=== PATIENT | female | born 1935 | race African-American/Black ===

== ENCOUNTER 2022-03-26 19:50 | Observation (INO) | payer MEDICARE ==
[2022-03-26] MEDS ORDERED: SODIUM CHLORIDE 0.9% 1000 ML 1,000 ML IV ONE (20:18)
[2022-03-26] MEDS ORDERED: PANTOPRAZOLE 80 MG in SODIUM CHLORIDE 0.9% 100 ML IV ONE (20:18)
[2022-03-26] MEDS ORDERED: PANTOPRAZOLE 40 MG INJ IV ONE (20:18)
[2022-03-26 21:12] LABS: Hematocrit 42.1 % (30.3-42.9); INR 1.03 (0.87-1.13); Mean Corpuscular HGB Conc 33 % (30-34); Mean Corpuscular Volume 95 fl (79-97); Red Blood Count 4.41 M/mm3 (3.65-5.03); Red Cell Distribution Width 14.2 % (13.2-15.2)
[2022-03-26 21:25] LABS: BUN/Creatinine Ratio TNR; Blood Urea Nitrogen TNR mg/dL (7-17)
[2022-03-26 21:26] LABS: Alanine Aminotransferase TNR units/L (7-56); Albumin TNR g/dL (3.9-5); Calcium TNR mg/dL (8.4-10.2)
[2022-03-26 21:27] LABS: Hemolysis Index 1003
[2022-03-26 21:30] LABS: Platelet Count 126 K/mm3 (140-440)
[2022-03-26 23:06] LABS: Alanine Aminotransferase 12 units/L (7-56); BUN/Creatinine Ratio 26; Blood Urea Nitrogen 23 mg/dL (7-17); Calcium 9.7 mg/dL (8.4-10.2); Hemolysis Index 393
--- NOTE | 2022-03-26 23:20 | Emergency Department Report ---
ED GI Bleed HPI - General Chief complaint: GI Bleed Stated complaint: RECTAL BLEEDING Time Seen by Provider: 03/26/22 20:11 Source: EMS Mode of arrival: Stretcher Limitations: No Limitations - History of Present Illness Initial comments: 86 with CHF , afib , dementia presented today with rectal bleeding this am per son - unsure if that is when it started as pt has dementia, son noticed this am , EMS reported some Low BP , MD complaint: gross hematochezia -: Gradual, hour(s) Severity scale (0 -10): 0 Consistency: intermittent Associated Symptoms: denies: denies other symptoms, abdominal pain, nausea, vomiting, epistaxis, headaches, loss of appetite, malaise - Related Data Previous Rx's Medication Instructions Recorded Last Taken Type ALBUTEROL NEB's [Proventil 0.083% 2.5 mg IH Q4HRT PRN #100 nebu 02/14/19 Unknown Rx NEBS] Amiodarone [Cordarone 200 MG TAB] 200 mg PO DAILY #20 tablet 02/14/19 Unknown Rx Apixaban [Eliquis] 2.5 mg PO BID #60 tablet 02/14/19 Unknown Rx AtorvaSTATin [Lipitor] 20 mg PO QHS #30 tablet 02/14/19 Unknown Rx Furosemide [Lasix TAB] 20 mg PO TuFr #30 tablet 02/14/19 Unknown Rx Prednisone [predniSONE 10 mg 10 mg PO .TAPER #1 tab.ds.pk 02/14/19 Unknown Rx (6-Day Pack, 21 Tabs)] carvediloL [Coreg] 3.125 mg PO BID #60 tablet 02/14/19 Unknown Rx lisinopriL [Zestril TAB] 20 mg PO QDAY #30 tablet 02/14/19 Unknown Rx Allergies Allergy/AdvReac Type Severity Reaction Status Date / Time No Known Allergies Allergy Verified 02/01/16 19:17 ED Review of Systems ROS: Stated complaint: RECTAL BLEEDING Other details as noted in HPI Constitutional: denies: chills, fever Eyes: denies: eye pain, eye discharge, vision change ENT: denies: ear pain, throat pain Respiratory: denies: cough, shortness of breath, wheezing Cardiovascular: denies: chest pain, palpitations Endocrine: no symptoms reported Gastrointestinal: denies: abdominal pain, nausea, diarrhea Genitourinary: denies: urgency, dysuria, discharge Musculoskeletal: denies: back pain, joint swelling, arthralgia Skin: denies: rash, lesions Neurological: denies: headache, weakness, paresthesias Psychiatric: denies: anxiety, depression Hematological/Lymphatic: denies: easy bleeding, easy bruising ED Past Medical Hx - Past Medical History Hx Hypertension: No Hx CVA: Yes Hx Heart Attack/AMI: No Hx Congestive Heart Failure: No Hx Deep Vein Thrombosis: No Hx of Cancer: Yes (breast) Hx Arthritis: Yes Hx Dementia: Yes Additional medical history: HIGH CHOLESTEROL. Afib - Surgical History Past Surgical History?: Yes Hx Coronary Stent: Yes Hx Pacemaker: Yes Hx Internal Defibrillator: No Hx Breast Surgery: Yes (left breast) Additional Surgical History: RT MASTECTOMY - Social History Smoking Status: Unknown if ever smoked - Medications Home Medications: Home Medications Medication Instructions Recorded Confirmed Last Taken Type ALBUTEROL NEB's [Proventil 0.083% 2.5 mg IH Q4HRT PRN #100 nebu 02/14/19 Unknown Rx NEBS] Amiodarone [Cordarone 200 MG TAB] 200 mg PO DAILY #20 tablet 02/14/19 Unknown Rx Apixaban [Eliquis] 2.5 mg PO BID #60 tablet 02/14/19 Unknown Rx AtorvaSTATin [Lipitor] 20 mg PO QHS #30 tablet 02/14/19 Unknown Rx Furosemide [Lasix TAB] 20 mg PO TuFr #30 tablet 02/14/19 Unknown Rx Prednisone [predniSONE 10 mg 10 mg PO .TAPER #1 tab.ds.pk 02/14/19 Unknown Rx (6-Day Pack, 21 Tabs)] carvediloL [Coreg] 3.125 mg PO BID #60 tablet 02/14/19 Unknown Rx lisinopriL [Zestril TAB] 20 mg PO QDAY #30 tablet 02/14/19 Unknown Rx ED Physical Exam - General Limitations: No Limitations General appearance: cachectic - Head Head exam: Present: atraumatic, normocephalic - Eye Eye exam: Present: normal appearance - ENT ENT exam: Present: mucous membranes moist - Neck Neck exam: Present: normal inspection - Respiratory Respiratory exam: Present: normal lung sounds bilaterally. Absent: respiratory distress - Cardiovascular Cardiovascular Exam: Present: regular rate, tachycardia. Absent: systolic murmur, diastolic murmur, rubs, gallop - GI/Abdominal GI/Abdominal exam: Present: soft, normal bowel sounds - Rectal Rectal exam: Present: heme (+) stool - Extremities Exam Extremities exam: Present: normal inspection - Back Exam Back exam: Present: normal inspection - Neurological Exam Neurological exam: Present: alert, oriented X3 - Psychiatric Psychiatric exam: Present: normal affect, normal mood - Skin Skin exam: Present: warm, dry, intact, normal color. Absent: rash ED Course Vital Signs 03/26/22 03/26/22 19:54 20:20 Temperature 99.1 F 97.6 F Pulse Rate 107 H 95 H Respiratory 16 18 Rate Blood Pressure 78/44 Blood Pressure 103/63 [Left] O2 Sat by Pulse 97 96 Oximetry ED Medical Decision Making - Lab Data Result diagrams: 03/26/22 20:18 03/26/22 20:18 - EKG Data -: EKG Interpreted by Me EKG shows normal: sinus rhythm Rate: normal - Radiology Data Radiology results: report reviewed, image reviewed - Medical Decision Making H.H stable fluids given BP imrpoved, PPI started will admit for obs and GI consult Critical care attestation.: If time is entered above; I have spent that time in minutes in the direct care of this critically ill patient, excluding procedure time. ED Disposition Clinical Impression: Hematochezia, Bleeding per rectum Disposition: ADMITTED INPATIENT Is pt being admited?: Yes Does the pt Need Aspirin: No Condition: Fair
--- NOTE | 2022-03-26 23:37 | Cat Scan Report ---
CT ABDOMEN AND PELVIS WITH CONTRAST INDICATION / CLINICAL INFORMATION: Question possible Diverticular bleed, / G.I. Bleed. TECHNIQUE: Axial CT images were obtained through the abdomen and pelvis after 100 cc Omnipaque [address] scans at this location are performed using CT dose reduction for ALARA by means of automated exposure control. COMPARISON: CT of the abdomen and pelvis 02/08/2019 FINDINGS: LOWER CHEST: Small airways within the left lower lobe demonstrate bronchial wall thickening and some evidence of mucous plugging. Mild bilateral lower lobe dependent atelectasis is present. Pacemaker wi res are in expected location. LIVER: No focal lesion. No acute findings. GALLBLADDER: No significant abnormality. BILE DUCTS: No significant abnormality. SPLEEN: No significant abnormality. PANCREAS: No significant abnormality. ADRENALS: No significant abnormality. KIDNEYS/URETERS: Posterior cortical cyst mid right kidney measuring up to 1.2 cm. Small angiomyolipom a lower pole left kidney measuring a centimeter. STOMACH / DUODENUM / SMALL BOWEL: The stomach, duodenum, and small bowel demonstrate no significant a bnormality. No specific abnormality of the mesentery demonstrated. COLON: Diverticulosis without acute inflammation. Moderate collection of stool present within the rec sis vault. Minimal perirectal fat stranding. APPENDIX: No significant abnormality. PERITONEUM: No free air or free fluid are present within the abdomen or pelvis. LYMPH NODES: No significant adenopathy. AORTA / ARTERIES: Moderate atherosclerotic calcification without acute abnormality. IVC / VEINS: No significant abnormality. URINARY BLADDER: High attenuation dependently within the bladder may reflect debris. Focal wall thick ening not excluded. No significant contrast is present within the collecting systems. REPRODUCTIVE ORGANS: Thin-walled simple appearing right ovarian cyst measuring 2.9 cm. Uterus and ova wayne otherwise demonstrate no significant abnormality. ADDITIONAL ABDOMINAL/PELVIC FINDINGS: Mild skin thickening in the region of the anus not excluded. SKELETAL SYSTEM: Diffuse osteopenia. Moderately advanced multilevel facet arthropathy of the lumbar s pine with levorotoscoliosis of the thoracolumbar spine apex apparently at T12-L1. IMPRESSION: 1. Moderate stool within the rectal vault with minimal wall thickening and perirectal fat stranding. Early Stercoral colitis could be considered. 2. Nonspecific skin thickening in the region of the anus. Correlation with physical exam recommended. Stable appearance of simple cyst right ovary. 3. Diverticulosis without obvious diverticulitis. Signer Name: Dylon Jeffers II, MD Signed: 03/26/2022 11:33 PM Workstation Name: [id number]
[2022-03-27 00:03] LABS: Calcium 9.7 mg/dL (8.4-10.2)
--- NOTE | 2022-03-27 01:20 | History and Physical Report ---
History of Present Illness Date of examination: 03/27/22 Date of admission: 03/27/22 Chief complaint: Rectal bleeding History of present illness: 86 years old female with history of CVA, breast cancer, arthritis, dementia, hypercholesterol, A. fib on Eliquis was brought to the emergency room because of rectal bleeding since this morning as per son. Family is unsure unsure if that is when it started as pt has dementia, son noticed this am , EMS reported some Low BP . Patient has gross hematochezia In the emergency room patient WBC is 18.0, hemoglobin 14.0 [address] scan of the abdomen showed moderate stool within the rectal vault with minimal wall thickening and perirectal fat stranding. Early stercoral colitis could be considered. so we are going to admit the patient to the medical telemetry. We will hold Eliquis, put the patient on Protonix drip and Zosyn and consult GI for evaluation Past History Past Medical History: arthritis (Dementia, high cholesterol, A. fib), stroke, other (Breast cancer) Past Surgical History: Other (History of coronary stent, pacemaker history of breast surgery right mastectomy) Social history: no significant social history Family history: no significant family history Medications and Allergies Allergies Allergy/AdvReac Type Severity Reaction Status Date / Time No Known Allergies Allergy Verified 02/01/16 19:17 Home Medications Medication Instructions Recorded Confirmed Last Taken Type ALBUTEROL NEB's [Proventil 0.083% 2.5 mg IH Q4HRT PRN #100 nebu 02/14/19 Unknown Rx NEBS] Amiodarone [Cordarone 200 MG TAB] 200 mg PO DAILY #20 tablet 02/14/19 Unknown Rx Apixaban [Eliquis] 2.5 mg PO BID #60 tablet 02/14/19 Unknown Rx AtorvaSTATin [Lipitor] 20 mg PO QHS #30 tablet 02/14/19 Unknown Rx Furosemide [Lasix TAB] 20 mg PO TuFr #30 tablet 02/14/19 Unknown Rx Prednisone [predniSONE 10 mg 10 mg PO .TAPER #1 tab.ds.pk 02/14/19 Unknown Rx (6-Day Pack, 21 Tabs)] carvediloL [Coreg] 3.125 mg PO BID #60 tablet 02/14/19 Unknown Rx lisinopriL [Zestril TAB] 20 mg PO QDAY #30 tablet 02/14/19 Unknown Rx Active Meds: Active Medications Acetaminophen (Acetaminophen 325 Mg Tab) 650 mg PO Q4H PRN PRN Reason: Pain MILD(1-3)/Fever >100.5/GILLIAM Albuterol (Albuterol 2.5 Mg/3 Ml Nebu) 2.5 mg IH Q3HRT PRN PRN Reason: Shortness Of Breath Albuterol/Ipratropium (Ipratropium/Albuterol Sulfate 3 Ml Ampul.Neb) 1 ampul IH Q6HRT [facility] Amiodarone HCl (Amiodarone 200 Mg Tab) 200 mg PO DAILY [facility] Atorvastatin Calcium (Atorvastatin 20 Mg Tab) 20 mg PO QHS [facility] Carvedilol (Carvedilol 6.25 Mg Tab) 3.125 mg PO BID [facility] Hydromorphone HCl (Hydromorphone 1 Mg/1 Ml Inj) 0.5 mg IV Q3H PRN PRN Reason: Pain , Severe (7-10) Pantoprazole Sodium 80 mg/ (Sodium Chloride) 100 mls @ 5 mls/hr IV ONCE ONE Stop: 03/27/22 16:17 Last Admin: 03/26/22 21:40 Dose: 4 mg/hr, 5 mls/hr Dextrose/Sodium Chloride (D5/0.45ns) 1,000 mls @ 100 mls/hr IV DIRECT [facility] Lisinopril (Lisinopril 40 Mg Tab) 20 mg PO QDAY [facility] Morphine Sulfate (Morphine 2 Mg/1 Ml Inj) 2 mg IV Q4H PRN PRN Reason: Pain, Moderate (4-6) Ondansetron HCl (Ondansetron 4 Mg/2 Ml Inj) 4 mg IV Q8H PRN PRN Reason: Nausea And Vomiting Sodium Chloride (Sodium Chloride 0.9% 10 Ml Flush Syringe) 10 ml IV BID [facility] Sodium Chloride (Sodium Chloride 0.9% 10 Ml Flush Syringe) 10 ml IV PRN PRN PRN Reason: LINE FLUSH Review of Systems All systems: negative Constitutional: weakness Gastrointestinal: BRBPR, hematochezia, other (Rectal bleeding) Exam - Constitutional Vitals: Temp Pulse Resp BP Pulse Ox 97.6 F 95 H 18 103/63 98 03/26/22 20:20 03/26/22 20:20 03/26/22 20:20 03/26/22 20:20 03/27/22 01:03 General appearance: Present: no acute distress, well-nourished - EENT Eyes: Present: PERRL ENT: hearing intact, clear oral mucosa - Neck Neck: Present: supple, normal ROM - Respiratory Respiratory effort: normal Respiratory: bilateral: diminished - Cardiovascular Heart Sounds: Present: S1 & S2. Absent: rub, click - Extremities Extremities: pulses symmetrical, No edema Peripheral Pulses: within normal limits - Abdominal General gastrointestinal: Present: soft, non-tender, non-distended, normal bowel sounds Female genitourinary: Present: normal - Integumentary Integumentary: Present: clear, warm, dry - Musculoskeletal Musculoskeletal: gait normal, strength equal bilaterally - Psychiatric Psychiatric: appropriate mood/affect, intact judgment & insight - Neurologic Neurologic: CNII-XII intact, moves all extremities Results - Labs CBC & Chem 7: 03/26/22 20:18 03/26/22 23:28 Labs: Laboratory Last Values WBC 18.0 K/mm3 (4.5-11.0) H 03/26/22 20:18 RBC 4.41 M/mm3 (3.65-5.03) 03/26/22 20:18 Hgb 14.0 gm/dl (10.1-14.3) 03/26/22 20:18 Hct 42.1 % (30.3-42.9) 03/26/22 20:18 MCV 95 fl (79-97) 03/26/22 20:18 MCH 32 pg (28-32) 03/26/22 20:18 MCHC 33 % (30-34) 03/26/22 20:18 RDW 14.2 % (13.2-15.2) 03/26/22 20:18 Plt Count 126 K/mm3 (140-440) L 03/26/22 20:18 Lymph % (Auto) [employer] [place] 03/26/22 20:18 [place] % (Auto) Guard Chief 03/26/22 20:18 Eos % (Auto) Guard Chief 03/26/22 20:18 Baso % (Auto) Guard Chief 03/26/22 20:18 Lymph # (Auto) Guard [place] 03/26/22 20:18 [place] # (Auto) Guard Chief 03/26/22 20:18 Eos # (Auto) Guard Chief 03/26/22 20:18 Baso # (Auto) Guard Chief 03/26/22 20:18 Seg Neutrophils % Guard Chief 03/26/22 20:18 Seg Neutrophils # Guard Chief 03/26/22 20:18 PT 14.6 Sec. (12.2-14.9) 03/26/22 20:18 INR 1.03 (0.87-1.13) 03/26/22 20:18 Sodium 137 mmol/L (137-145) 03/26/22 23:28 Potassium 4.6 mmol/L (3.6-5.0) 03/26/22 23:28 Chloride 103.2 mmol/L (98-107) 03/26/22 23:28 Carbon Dioxide 22 mmol/L (22-30) 03/26/22 23:28 Anion Gap 16 mmol/L 03/26/22 23:28 BUN 22 mg/dL (7-17) H 03/26/22 23:28 Creatinine 0.9 mg/dL (0.6-1.2) 03/26/22 23:28 Estimated GFR 60 ml/min 03/26/22 23:28 BUN/Creatinine Ratio 24 % 03/26/22 23:28 Glucose 145 mg/dL (65-100) H 03/26/22 23:28 Calcium 9.7 mg/dL (8.4-10.2) 03/26/22 23:28 Total Bilirubin 0.90 mg/dL (0.1-1.2) 03/26/22 23:28 AST 15 units/L (5-40) 03/26/22 23:28 ALT 10 units/L (7-56) 03/26/22 23:28 Alkaline Phosphatase 113 units/L (35-129) 03/26/22 23:28 Total Protein 6.4 g/dL (6.3-8.2) 03/26/22 23:28 Albumin 3.0 g/dL (3.9-5) L 03/26/22 23:28 Albumin/Globulin Ratio 0.9 % 03/26/22 23:28 Lipase 28 units/L (13-60) 03/26/22 23:28 - Imaging and Cardiology CT scan - abdomen: report reviewed Assessment and Plan VTE prophylaxis?: Mechanical Plan of care discussed with patient/family: Yes - Patient Problems (1) Rectal bleeding Current Visit: Yes Status: Acute Plan to address problem: Admit the patient to the medical telemetry. NPO. D5 half-normal saline at the rate of 100 cc/h. Protonix drip. Serial H&H. GI, evaluation. Recheck CBC in the morning (2) Colitis Current Visit: Yes Status: Acute Plan to address problem: Zosyn 4.5 g IV every 8 hours. Will consult GI for evaluation (3) Coronary artery disease Current Visit: Yes Status: Acute Plan to address problem: Is stable. We will continue the home medication (4) Atrial fibrillation with RVR Current Visit: No Status: Acute Plan to address problem: Amiodarone 200 mg p.o. twice daily. Coreg 3.125 mg p.o. twice daily (5) CHF (congestive heart failure) Current Visit: No Status: Acute Plan to address problem: Stable. Avoid fluid overload. We will monitor the patient closely (6) DVT prophylaxis Current Visit: Yes Status: Acute Plan to address problem: SCD for DVT prophylaxis. Protonix drip for GI prophylaxis. Patient is a full code
[2022-03-27] MEDS ORDERED: ONDANSETRON 4 MG/2 ML INJ IV PRN (01:30)
[2022-03-27] MEDS ORDERED: ACETAMINOPHEN 325 MG TAB PO PRN (01:30)
[2022-03-27] MEDS ORDERED: HYDROmorphone 1 MG/1 ML INJ IV PRN (01:30)
[2022-03-27] MEDS ORDERED: MORPHINE 2 MG/1 ML INJ IV PRN (01:30)
[2022-03-27] MEDS ORDERED: ALBUTEROL 2.5 MG/3 ML NEBU IH PRN ×2 (02:00→22:16)
[2022-03-27] MEDS ORDERED: D5W/0.45% NACL 1,000 ML IV SCH (02:00)
[2022-03-27] MEDS ORDERED: PIPERACIL/TAZOBACTA 4.5/NS 100 4.5 GM/100 ML VIAL IV SCH (02:00)
[2022-03-27] MEDS: IPRATROPIUM/ALBUTEROL SULFATE 3 ML AMPUL.NEB IH SCH ×4 (06:50→22:11)
[2022-03-27] MEDS ORDERED: LACTATED RINGERS 1,000 ML IV ONE (08:00)
--- NOTE | 2022-03-27 09:13 | Gastroenterology Consultation ---
History of Present Illness - Reason for Consult Consult date: 03/27/22 GI bleed Requesting physician: MYNOR RAMIREZ - History of Present Illness The patient is a 86 yo female originally from the [facility] who was brought to hospital by son after noticing blood per rectum. Patient has a h/o dementia and unable to provide history, son at bedside who provides history for pt. he noticed bleeding per rectum yesterday, she felt light headed and brought pt to ER. no prior episodes of known bleeding. eliquis on home meds but pt's son denies patient being on prescription medications. no episodes of bleeding reported overnight. pt's son reports dark maroon appearing blood noticed yesterday. rectal at bedside showed large amount of dark stools mixed with b lood. HD stable and initial hct normal. unknown prior endoscopy/colonoscopy. Past History Past Medical History: arthritis (Dementia, high cholesterol, A. fib), stroke, other (Breast cancer) Past Surgical History: Other (History of coronary stent, pacemaker history of breast surgery right mastectomy) Social history: no significant social history Family history: no significant family history Medications and Allergies Allergies Allergy/AdvReac Type Severity Reaction Status Date / Time No Known Allergies Allergy Verified 02/01/16 19:17 Home Medications Medication Instructions Recorded Confirmed Last Taken Type ALBUTEROL NEB's [Proventil 0.083% 2.5 mg IH Q4HRT PRN #100 nebu 02/14/19 Unknow n Rx NEBS] Amiodarone [Cordarone 200 MG TAB] 200 mg PO DAILY #20 tablet 02/14/19 Unknown Rx Apixaban [Eliquis] 2.5 mg PO BID #60 tablet 02/14/19 Unknown Rx AtorvaSTATin [Lipitor] 20 mg PO QHS #30 tablet 02/14/19 Unknown Rx Furosemide [Lasix TAB] 20 mg PO TuFr #30 tablet 02/14/19 Unknown Rx Prednisone [predniSONE 10 mg 10 mg PO .TAPER #1 tab.ds.pk 02/14/19 Unknown Rx (6-Day Pack, 21 Tabs)] carvediloL [Coreg] 3.125 mg PO BID #60 tablet 02/14/19 Unknown Rx lisinopriL [Zestril TAB] 20 mg PO QDAY #30 tablet 02/14/19 Unknown Rx Active Meds: Active Medications Acetaminophen (Acetaminophen 325 Mg Tab) 650 mg PO Q4H PRN PRN Reason: Pain MILD(1-3)/Fever >100.5/GILLIAM Albuterol/Ipratropium (Ipratropium/Albuterol Sulfate 3 Ml Ampul.Neb) 1 ampul IH Q6HRT [facility] Last Admin: 03/27/22 08:36 Dose: 1 ampul Amiodarone HCl (Amiodarone 200 Mg Tab) 200 mg PO DAILY [facility] Atorvastatin Calcium (Atorvastatin 20 Mg Tab) 20 mg PO QHS [facility] Hydromorphone HCl (Hydromorphone 1 Mg/1 Ml Inj) 0.5 mg IV Q3H PRN PRN Reason: Pain , Severe (7-10) Pantoprazole Sodium 80 mg/ (Sodium Chloride) 100 mls @ 5 mls/hr IV ONCE ONE Stop: 03/27/22 16:17 Last Admin: 03/26/22 21:40 Dose: 4 mg/hr, 5 mls/hr Piperacillin Sod/Tazobactam Sod (Zosyn/Ns 2.25 Gm/50ml) 2.25 gm in 50 mls @ 100 mls/hr IV Q8HR [facility]; Protocol Lactated Ringer's (Lactated Ringers) 1,000 mls @ 500 mls/hr IV BOLUS ONE Stop: 03/27/22 09:59 Morphine Sulfate (Morphine 2 Mg/1 Ml Inj) 2 mg IV Q4H PRN PRN Reason: Pain, Moderate (4-6) Ondansetron HCl (Ondansetron 4 Mg/2 Ml Inj) 4 mg IV Q8H PRN PRN Reason: Nausea And Vomiting Sodium Chloride (Sodium Chloride 0.9% 10 Ml Flush Syringe) 10 ml IV BID [facility] Sodium Chloride (Sodium Chloride 0.9% 10 Ml Flush Syringe) 10 ml IV PRN PRN PRN Reason: LINE FLUSH Reviewed/updated patient's home and current medications Review of Systems - Review of Systems ROS unobtainable: due to mental status Exam - Constitutional Vital Signs: Temp Pulse Resp BP Pulse Ox 98.6 F 72 16 105/47 97 03/27/22 08:02 03/27/22 08:02 03/27/22 08:02 03/27/22 08:02 03/27/22 08:02 General appearance: no acute distress, other (non-verbal) - Neck Neck: supple - Respiratory Respiratory effort: normal Respiratory: bilateral: CTA - Cardiovascular Rhythm: regular Heart Sounds: Present: S1 & S2 - Gastrointestinal General gastrointestinal: Present: soft, non-tender, non-distended Rectal Exam: stool bloody - Neurologic Neurological: other (non-verbal) - Labs CBC & Chem 7: 03/26/22 20:18 03/26/22 23:28 Lab Results: Laboratory Results - last 24 hr 03/26/22 03/26/22 03/26/22 20:18 20:18 20:18 WBC 18.0 H RBC 4.41 Hgb 14.0 Hct 42.1 MCV 95 MCH 32 MCHC 33 RDW 14.2 Plt Count 126 L Lymph % (Auto) Director [employer] [place] % (Auto) Director [employer] Eos % (Auto) [employer] Baso % (Auto) Director [employer] Lymph # (Auto) Director [employer] [place] # (Auto) Director [employer] Eos # (Auto) Director [employer] Baso # (Auto) Director [employer] Seg Neutrophils % Director [employer] Seg Neutrophils # Director [employer] PT 14.6 INR 1.03 Sodium TNR Potassium TNR Chloride TNR Carbon Dioxide TNR Anion Gap TNR BUN TNR Creatinine TNR Estimated GFR TNR BUN/Creatinine Ratio TNR Glucose TNR Calcium TNR Total Bilirubin TNR AST TNR ALT TNR Alkaline Phosphatase TNR Total Protein TNR Albumin TNR Albumin/Globulin Ratio TNR Lipase TNR 03/26/22 03/26/22 22:19 23:28 WBC RBC Hgb Hct MCV MCH MCHC RDW Plt Count Lymph % (Auto) [place] % (Auto) Eos % (Auto) Baso % (Auto) Lymph # (Auto) [place] # (Auto) Eos # (Auto) Baso # (Auto) Seg Neutrophils % Seg Neutrophils # PT INR Sodium TNR 137 Potassium TNR 4.6 Chloride TNR 103.2 Carbon Dioxide 21 L 22 Anion Gap TNR 16 BUN 23 H 22 H Creatinine 0.9 0.9 Estimated GFR 60 60 BUN/Creatinine Ratio 26 24 Glucose 156 H 145 H Calcium 9.7 9.7 Total Bilirubin 0.90 0.90 AST 36 15 ALT 12 10 Alkaline Phosphatase 108 113 Total Protein 6.8 6.4 Albumin 3.0 L 3.0 L Albumin/Globulin Ratio 0.8 0.9 Lipase 32 28 Assessment and Plan 1. GI bleed/hematochezia - reported dark maroon blood yesterday; rectal with dark stools mixed with blood appearance suggestive of lower gi source, although upper source also possible. cont PPI, repeat H/H and manage conservatively from gi stand point if vitals stable and no significant drop in h/h. given advanced dementia, would reserve colonoscopy for urgent indication as would be difficult to prep (would need NG tube placement for golytely). may need to consider EGD based on clinical course. will plan conservative management for time being.
[2022-03-27] MEDS: AMIODARONE 200 MG TAB PO SCH (09:14)
[2022-03-27] MEDS ORDERED: carvediloL 6.25 MG TAB PO SCH (10:00)
[2022-03-27] MEDS ORDERED: LISINOPRIL 40 MG TAB PO SCH (10:00)
[2022-03-27] MEDS ORDERED: carvediloL 3.125 MG TAB PO SCH (10:00)
--- NOTE | 2022-03-27 10:49 | Electrocardiograph Report ---
[facility] Test Date: 2022-03-26 Test Time: 22:44:15 Pat Name: NAM MORALES Department: Room: A457 1 Gender: F [employer]: SANIYA : 1935 Requested By: MYNOR RAMIREZ Order Number: [id number] Reading MD: Amadou Wakefield Measurements Intervals [place] Rate: 82 P: 41 MT: 149 QRS: -7 QRSD: 63 T: 9 QT: 397 QTc: 465 Interpretive Statements Sinus rhythm Right atrial enlargement No previous ECG available for comparison Electronically Signed On 03-27-2022 10:49:02 EDT by Amadou Wakefield
[2022-03-27] MEDS ORDERED: PANTOPRAZOLE 80 MG in SODIUM CHLORIDE 0.9% 100 ML IV SCH (12:00)
--- NOTE | 2022-03-27 13:35 | Event Note ---
Date: 03/27/22 Patient was evaluated this morning, and she was found to be hemodynamically stable. #Hematochezia #Colitis #Leukocytosis WBC 18 Hemoglobin 14; however, patient having large bloody stools at the bedside Continue pantoprazole drip and clear liquid diet Gastroenterology consulted; appreciate recs. Patient will be conservatively managed given her dementia and advanced age. Bleeding is likely secondary to being on anticoagulation in the setting of colitis Continuing Zosyn 4.5 g every 8 hours Continue to trend hemoglobin daily #Hypotension #Atrial fibrillation with RVR Administering additional liter of normal saline in the setting of hypotension Holding home Eliquis 2.5 mg twice daily in the setting of hematochezia/lower GI bleed Holding amiodarone 200 mg daily and lisinopril 20 mg and Coreg 3.125 mg twice daily in the setting of hypotension Can restart medications prior to discharge if patient's condition allows #Congestive heart failurestable Closely monitoring fluid administration to avoid fluid overload #Chronic CADstable #History of CVA #Hyperlipidemia Continue home atorvastatin 20 mg daily #Baseline dementia Continue to orient the patient, open blinds during the daytime, close blinds at night, turn off TV at approximately 10 PM, etc. Attempted to call patient's son but line was busy. We will continue to reach out. #Coordination of CARE time: 30 minutes. Total visit time equals 30 or more minutes with greater than 50% spent [id number] on coordination of care and counseling. #Advanced care planning -Disease education conducted, care plan discussed, diagnoses discussed, prognosis discussed, and patient acknowledges understanding with care plan -Time: +30 min
[2022-03-27] MEDS ORDERED: PIPERACIL-TAZO 2.25 GM/50 ML 2.25 GM/50 ML BAG IV SCH (14:00)
[2022-03-27 14:45] LABS: Hematocrit 33.5 % (30.3-42.9)
[2022-03-27] MEDS: PIPERACIL/TAZOBACTA 4.5/NS 100 4.5 GM/100 ML VIAL IV SCH ×2 (15:32→22:06)
[2022-03-27] MEDS ORDERED: IPRATROPIUM/ALBUTEROL SULFATE 3 ML AMPUL.NEB IH ONE (20:00)
[2022-03-28 05:25] LABS: Basophils # (Auto) 0.1 K/mm3 (0.0-0.1); Basophils % (Auto) 1.1 % (0.0-1.8); Eosinophils # (Auto) 0.5 K/mm3 (0.0-0.4); Eosinophils % (Auto) 5.6 % (0.0-4.3); Hematocrit 29.6 % (30.3-42.9); Lymphocytes # (Auto) 1.2 K/mm3 (1.2-5.4); Lymphocytes % (Auto) 13.7 % (13.4-35.0); Mean Corpuscular HGB Conc 34 % (30-34); Mean Corpuscular Volume 96 fl (79-97); Monocytes # (Auto) 0.8 K/mm3 (0.0-0.8); Monocytes % (Auto) 8.7 % (0.0-7.3); Platelet Count 254 K/mm3 (140-440); Red Cell Distribution Width 13.5 % (13.2-15.2)
[2022-03-28 05:37] LABS: Calcium 10.3 mg/dL (8.4-10.2)
[2022-03-28] MEDS: PIPERACIL/TAZOBACTA 4.5/NS 100 4.5 GM/100 ML VIAL IV SCH ×3 (05:57→21:00)
[2022-03-28] MEDS ORDERED: LACTATED RINGERS 1,000 ML IV ONE (08:30)
[2022-03-28] MEDS: PANTOPRAZOLE 40 MG INJ IV SCH ×2 (10:25→20:59)
[2022-03-28] MEDS: AMIODARONE 200 MG TAB PO SCH (10:25)
--- NOTE | 2022-03-28 12:17 | Progress Note ---
Assessment and Plan Assessment and plan: #Hematochezia #Colitis #Leukocytosisresolved #Acute blood loss anemia Hemoglobin 14--> 11--> 10 WBC 18--> 8.9 Discontinued pantoprazole drip. Transition to IV pantoprazole 40 mg twice daily. Transition to GI soft diet. Gastroenterology consulted; appreciate recs. Patient will be conservatively managed given her dementia and advanced age. Bleeding is likely secondary to possible diverticular bleed. Patient's son describes the patient not being on Eliquis for approximately 2 years. Continuing Zosyn 4.5 g every 8 hours; can discontinue Zosyn after total of 48 hours. Continue to trend hemoglobin daily #Hypotensionresolved #Hypertension #Atrial fibrillation with RVRresolved Administering additional liter of normal saline in the setting of hypotension Holding home Eliquis 2.5 mg twice daily in the setting of hematochezia/lower GI bleed Restarting amiodarone 200 mg daily and lisinopril 10 mg daily. Continue to hold on home Coreg 3.125 mg twice daily. Continue to monitor #Congestive heart failurestable Closely monitoring fluid administration to avoid fluid overload #Chronic CADstable #History of CVA #Hyperlipidemia Discontinuing home atorvastatin given patient's advanced age. [id number] (including gender). Patient will be discharging home with aspirin 81 mg daily. #Baseline dementia Continue to orient the patient, open blinds during the daytime, close blinds at night, turn off TV at approximately 10 PM, etc. Attempted to call patient's son but line was busy. We will continue to reach out. #Severe protein caloric malnutrition Albumin 3.0 and BMI 18.9 Nutrition consulted; appreciate recs. Continue Ensure supplementation. #Advanced care planning -Disease education conducted, care plan discussed, diagnoses discussed, prognosis discussed, and patient acknowledges understanding with care plan -Time: +30 min Discussion: Spoke with patient's son River Steinberg who explained to the patient has been off of her anticoagulation (Eliquis 2.5 mg twice daily) for approximately 2 years. The patient had not been feeling well prior to presentation, and she was complaining of constipation. The patient became lightheaded and unresponsive in addition to having a large bloody bowel movement at home. This had prompted the call to EMS for hospital transport. Patient son understands that she will not be discharged on Eliquis. But given her history of stroke and chronic CAD, the patient will be discharged on aspirin 81 mg daily. Disposition Plan: Continue medical management Total Time Spent with Patient (Minutes): 45 minutes History Interval history: Continue medical management. Hospitalist Physical - Constitutional Vitals: Temp Pulse Resp BP Pulse Ox 98.6 F 68 18 145/42 96 03/28/22 11:47 03/28/22 11:47 03/28/22 11:47 03/28/22 11:47 03/28/22 11:47 General appearance: Present: no acute distress, cachectic - EENT Eyes: Present: PERRL, EOM intact ENT: hearing intact, clear oral mucosa, edentulous - Neck Neck: Present: supple, normal ROM - Respiratory Respiratory effort: normal Respiratory: bilateral: CTA - Cardiovascular Rhythm: regular Heart Sounds: Present: S1 & S2 - Extremities Extremities: no ischemia, pulses intact, pulses symmetrical, No edema, normal temperature, normal color Peripheral Pulses: within normal limits - Abdominal General gastrointestinal: soft, non-tender, non-distended, normal bowel sounds - Integumentary Integumentary: Present: clear, warm, dry - Psychiatric Psychiatric: appropriate mood/affect, cooperative - Neurologic Neurologic: CNII-XII intact, moves all extremities - Allied Health Allied health notes reviewed: nursing Results - Labs CBC & Chem 7: 03/28/22 04:53 03/28/22 04:53 Labs: Laboratory Last Values WBC 8.9 K/mm3 (4.5-11.0) 03/28/22 04:53 RBC 3.10 M/mm3 (3.65-5.03) L 03/28/22 04:53 Hgb 10.0 gm/dl (10.1-14.3) L 03/28/22 04:53 Hct 29.6 % (30.3-42.9) L 03/28/22 04:53 MCV 96 fl (79-97) 03/28/22 04:53 MCH 32 pg (28-32) 03/28/22 04:53 MCHC 34 % (30-34) 03/28/22 04:53 RDW 13.5 % (13.2-15.2) 03/28/22 04:53 Plt Count 254 K/mm3 (140-440) D 03/28/22 04:53 Lymph % (Auto) 13.7 % (13.4-35.0) 03/28/22 04:53 [place] % (Auto) 8.7 % (0.0-7.3) H 03/28/22 04:53 Eos % (Auto) 5.6 % (0.0-4.3) H 03/28/22 04:53 Baso % (Auto) 1.1 % (0.0-1.8) 03/28/22 04:53 Lymph # (Auto) 1.2 K/mm3 (1.2-5.4) 03/28/22 04:53 B[place] # (Auto) 0.8 K/mm3 (0.0-0.8) 03/28/22 04:53 Eos # (Auto) 0.5 K/mm3 (0.0-0.4) H 03/28/22 04:53 Baso # (Auto) 0.1 K/mm3 (0.0-0.1) 03/28/22 04:53 Seg Neutrophils % 70.9 % (40.0-70.0) H 03/28/22 04:53 Seg Neutrophils # 6.3 K/mm3 (1.8-7.7) 03/28/22 04:53 PT 14.6 Sec. (12.2-14.9) 03/26/22 20:18 INR 1.03 (0.87-1.13) 03/26/22 20:18 Sodium 142 mmol/L (137-145) 03/28/22 04:53 Potassium 4.2 mmol/L (3.6-5.0) 03/28/22 04:53 Chloride 110.5 mmol/L (98-107) H 03/28/22 04:53 Carbon Dioxide 23 mmol/L (22-30) 03/28/22 04:53 Anion Gap 13 mmol/L 03/28/22 04:53 BUN 18 mg/dL (7-17) H 03/28/22 04:53 Creatinine 0.9 mg/dL (0.6-1.2) 03/28/22 04:53 Estimated GFR 60 ml/min 03/28/22 04:53 BUN/Creatinine Ratio 20 % 03/28/22 04:53 Glucose 103 mg/dL (65-100) H 03/28/22 04:53 Calcium 10.3 mg/dL (8.4-10.2) H 03/28/22 04:53 Total Bilirubin 0.90 mg/dL (0.1-1.2) 03/26/22 23:28 AST 15 units/L (5-40) 03/26/22 23:28 ALT 10 units/L (7-56) 03/26/22 23:28 Alkaline Phosphatase 113 units/L (35-129) 03/26/22 23:28 Total Protein 6.4 g/dL (6.3-8.2) 03/26/22 23:28 Albumin 3.0 g/dL (3.9-5) L 03/26/22 23:28 Albumin/Globulin Ratio 0.9 % 03/26/22 23:28 Lipase 28 units/L (13-60) 03/26/22 23:28 Franco/IV: Voiding Method Incontinent Active Medications - Current Medications Current Medications: Generic Name Dose Route Start Last Admin Trade Name Freq PRN Reason Stop Dose Admin Acetaminophen 650 mg 03/27/22 01:30 Acetaminophen 325 Mg Tab PO Q4H PRN Pain MILD(1-3)/Fever >100.5/GILLIAM Albuterol 2.5 mg 03/27/22 22:16 Albuterol 2.5 Mg/3 Ml Nebu IH Q4HRT PRN Shortness Of Breath Amiodarone HCl 200 mg 03/27/22 10:00 03/28/22 10:25 Amiodarone 200 Mg Tab PO 200 mg DAILY ERICKSON Administration Hydromorphone HCl 0.5 mg 03/27/22 01:30 Hydromorphone 1 Mg/1 Ml Inj IV Q3H PRN Pain , Severe (7-10) Piperacillin Sod/Tazobactam Sod 4.5 gm in 100 mls @ 200 mls/hr 03/27/22 14:00 03/28/22 05:57 Zosyn/Ns 4.5gm/100ml IV 200 mls/hr Q8H ERICKSON Administration Protocol Morphine Sulfate 2 mg 03/27/22 01:30 Morphine 2 Mg/1 Ml Inj IV Q4H PRN Pain, Moderate (4-6) Ondansetron HCl 4 mg 03/27/22 01:30 Ondansetron 4 Mg/2 Ml Inj IV Q8H PRN Nausea And Vomiting Pantoprazole Sodium 40 mg 03/28/22 10:00 03/28/22 10:25 Pantoprazole 40 Mg Inj IV 40 mg BID ERICKSON Administration Sodium Chloride 10 ml 03/27/22 10:00 03/28/22 10:25 Sodium Chloride 0.9% 10 Ml Flush Syringe IV 10 ml BID ERICKSON Administration Sodium Chloride 10 ml 03/27/22 02:00 Sodium Chloride 0.9% 10 Ml Flush Syringe IV PRN PRN LINE FLUSH Nutrition/Malnutrition Assess - Dietary Evaluation Nutrition/Malnutrition Findings: Nutrition Notes Start: 03/27/22 12:34 Freq: Status: Active Protocol: Document 03/27/22 12:34 BRIANNE (Rec: 03/27/22 13:04 BRIANNE [id number]) Nutrition Notes Need for 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 .. Current Diet Clear Liquids Diet + D Suppl ( from L 03/27). Labs/Tests 03/27: BUN 22, Glu 145. Pertinent Medications 03/27: Nutritionally unremarkable. 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 Weight Status Appropriate Subjective/Other Information RD consult for risk of malnutrition assessment. Pt has been NPO since admission, just advanced to PO diet, no reports available on Pt's PO intake at the time, will assess at F/U. I will prescribe Dietary Supplementation to compensate for poor or insufficient PO intake of meals. Pt is on Room Air, O2 saturation @ 98%, according to Physical Assessment History notes. Pt shows no signs of concern for risk of malnutrition at the time, according to Physical Assessment History notes. Pt has missing teeth, according to Physical Assessment History notes. Pt presents GI Bleed, according to History & Physical notes. Percent of energy/protein needs met: Prescribed Clear Liquids Diet provides for energy/protein needs (590 Kcal/16 g) during LOS; additionally, Dietary Supplements will compensate for possible poor or insufficient PO intake of meals with 720 Kcal and 24 g of protein. Burn Absent Trauma Absent GI Symptoms Other Food Allergy No Skin Integrity/Comment Assessment WNL. Current % PO Other Minimum of two criteria No #1 Nutrition Diagnosis Altered GI function Etiology Possibly Colitis. As Evidenced by Signs and Symptoms GI Bleed/Hematochezia Is patient on ventilator? No Is Patient Ambulatory and/or Out of Bed No REE-([facility]-confined to bed) 1123.560 Kcal/Kg value to use for calculation 28 Approximate Energy Requirements Using 1400 kcal/Kg Calculation Used for Recommendations Kcal/kg Additional Notes Protein: 1.25-1.5 g/Kg IBW; 69 -83 g/day. Fluids: 1 ml/Kcal, or as per MD. Nutrition Intervention Change Diet Order: Continue Clear Liquids Diet. Advance to Full Liquids Diet when pertinent, as tolerated. Add Supplement/Snack (indicate name/kcal Start 8 fl oz Ensure Clear; /protein ) TID. Provides kCal: 720 Provides Protein (gm) 24 Goal #1 Compensate, through dietary supplementation, for possible poor or insufficient PO intake of meals during LOS. Goal #2 Adjust the dietary intervention to better serve Pt's needs and clinical conditions during LOS. Goal #3 Maintain body weight within +/ -3% of admission body weight during LOS. Follow-Up By: 03/31/22 Additional Comments Continue monitoring food tolerance, %PO intake of meals , and BM.
--- NOTE | 2022-03-28 14:36 | Gastroenterology Progress Note ---
Assessment and Plan Hematochezia/gi bleed - no episodes today, noted drop in H/H from admission, repeat level was stable. HD stable. conservative management from gi stand point given dementia at this time. okay to advance diet as tolerated. Subjective Date of service: 03/28/22 Principal diagnosis: gi bleed Interval history: no bleeding episodes today. more awake today, disoriented, son at bedside. Objective - Constitutional Vitals: Temp Pulse Resp BP Pulse Ox 98.6 F 68 18 145/42 96 03/28/22 11:47 03/28/22 11:47 03/28/22 11:47 03/28/22 11:47 03/28/22 11:47 General appearance: no acute distress (e) - Respiratory Respiratory effort: normal Respiratory: bilateral: CTA - Gastrointestinal General gastrointestinal: Present: soft, non-tender - Labs CBC & Chem 7: 03/28/22 04:53 03/28/22 04:53 Labs: Laboratory Results - last 24 hr 03/27/22 03/28/22 03/28/22 14:26 04:53 04:53 WBC 8.9 RBC 3.10 L Hgb 11.0 D 10.0 L Hct 33.5 D 29.6 L MCV 96 MCH 32 MCHC 34 RDW 13.5 Plt Count 254 D Lymph % (Auto) 13.7 [place] % (Auto) 8.7 H Eos % (Auto) 5.6 H Baso % (Auto) 1.1 Lymph # (Auto) 1.2 Sunflower # (Auto) 0.8 Eos # (Auto) 0.5 H Baso # (Auto) 0.1 Seg Neutrophils % 70.9 H Seg Neutrophils # 6.3 Sodium 142 Potassium 4.2 Chloride 110.5 H Carbon Dioxide 23 Anion Gap 13 BUN 18 H Creatinine 0.9 Estimated GFR 60 BUN/Creatinine Ratio 20 Glucose 103 H Calcium 10.3 H
[2022-03-29 04:05] LABS: Hematocrit 28.1 % (30.3-42.9); Hemoglobin 9.3 gm/dl (10.1-14.3); Mean Corpuscular HGB Conc 33 % (30-34); Mean Corpuscular Volume 96 fl (79-97); Platelet Count 237 K/mm3 (140-440); Red Blood Count 2.93 M/mm3 (3.65-5.03); Red Cell Distribution Width 13.7 % (13.2-15.2)
[2022-03-29 04:07] LABS: Calcium 9.1 mg/dL (8.4-10.2)
[2022-03-29] MEDS: PIPERACIL/TAZOBACTA 4.5/NS 100 4.5 GM/100 ML VIAL IV SCH (06:04)
--- NOTE | 2022-03-29 09:36 | Gastroenterology Progress Note ---
Assessment and Plan 1. GI bleed - H/H appears to be stabilizing, vital signs are stable. unclear etiology/source. signs of possible early stercoral colitis on ct scan which could be potential source. has continued dark stools, and BUN has normalized so upper source can not be definitively ruled out. she is stable however and tolerating po, so would cont conservative management from gi stand point given advanced dementia. if there is worsening H/H and/or continued signs of dark stools/gi bleeding, then would need to rediscuss with son about possible egd +/- colonoscopy. cont PPI until tomorrow and re-assess. Subjective Date of service: 03/29/22 Principal diagnosis: gi bleed Interval history: pt awake, + dementia, dark stools in diaper. tolerating po Objective - Constitutional Vitals: Temp Pulse Resp BP Pulse Ox 98.3 F 67 16 133/43 98 03/29/22 07:57 03/29/22 07:57 03/29/22 03:41 03/29/22 07:57 03/29/22 07:57 General appearance: no acute distress - Respiratory Respiratory effort: normal Respiratory: bilateral: CTA - Cardiovascular Rhythm: regular Heart Sounds: Present: S1 & S2 - Gastrointestinal General gastrointestinal: Present: soft, non-tender - Neurologic Neurological: disoriented - Labs CBC & Chem 7: 03/29/22 03:07 03/29/22 03:07 Labs: Laboratory Results - last 24 hr 03/29/22 03/29/22 03:07 03:07 WBC 7.7 RBC 2.93 L Hgb 9.3 L Hct 28.1 L MCV 96 MCH 32 MCHC 33 RDW 13.7 Plt Count 237 Lymph % (Auto) Netezza Architect [place] % (Auto) Netezza Architect Eos % (Auto) Netezza Architect Baso % (Auto) Netezza Architect Lymph # (Auto) [employer]ezza Architect [place] # (Auto) Netezza Architect Eos # (Auto) Netezza Architect Baso # (Auto) Netezza Architect Seg Neutrophils % Netezza Architect Seg Neutrophils # Netezza Architect Sodium 140 Potassium 3.9 Chloride 108.7 H Carbon Dioxide 19 L Anion Gap 16 BUN 11 Creatinine 0.9 Estimated GFR 60 BUN/Creatinine Ratio 12 Glucose 103 H Calcium 9.1
[2022-03-29] MEDS: ASPIRIN 81 MG TAB CHEW PO SCH (09:46)
[2022-03-29] MEDS: AMIODARONE 200 MG TAB PO SCH (09:47)
[2022-03-29] MEDS: PANTOPRAZOLE 40 MG INJ IV SCH ×2 (09:48→21:17)
[2022-03-29] MEDS: LISINOPRIL 10 MG TAB PO SCH (09:48)
--- NOTE | 2022-03-29 13:10 | Progress Note ---
Assessment and Plan Assessment and plan: #Hematocheziaimproving #Colitis #Leukocytosisresolved #Acute blood loss anemiaresolved Hemoglobin 14--> 11--> 10 WBC 18--> 8.9 Discontinued pantoprazole drip. Transition to regular diet and p.o. pantoprazole 40 mg twice daily. Gastroenterology consulted; appreciate recs. Patient will be conservatively managed given her dementia and advanced age. Bleeding is likely secondary to possible diverticular bleed. Patient's son describes the patient not being on Eliquis for approximately 2 years. Discontinuing Zosyn 4.5 g every 8 hours Continue to trend hemoglobin daily #Hypotensionresolved #Hypertension #Atrial fibrillation with RVRresolved Administering additional liter of normal saline in the setting of hypotension Holding home Eliquis 2.5 mg twice daily in the setting of hematochezia/lower GI bleed Restarting amiodarone 200 mg daily and lisinopril 10 mg daily. Continue to hold on home Coreg 3.125 mg twice daily. Continue to monitor #Congestive heart failurestable Closely monitoring fluid administration to avoid fluid overload #Chronic CADstable #History of CVA #Hyperlipidemia Discontinuing home atorvastatin given patient's advanced age. [id number] (including gender). Patient will be discharging home with aspirin 81 mg daily. #Baseline dementia Continue to orient the patient, open blinds during the daytime, close blinds at night, turn off TV at approximately 10 PM, etc. Attempted to call patient's son but line was busy. We will continue to reach out. #Severe protein caloric malnutrition Albumin 3.0 and BMI 18.9 Nutrition consulted; appreciate recs. Continue Ensure supplementation. #Advanced care planning -Disease education conducted, care plan discussed, diagnoses discussed, prognosis discussed, and patient acknowledges understanding with care plan -Time: +30 min #Discharge planning - Patient is pending complete resolution of hematochezia - Case management has been made aware. - Discharge is tentatively 24-48 hours Discussion: Spoke with patient's son River Steinberg who explained to the patient has been off of her anticoagulation (Eliquis 2.5 mg twice daily) for approximately 2 years. The patient had not been feeling well prior to presentation, and she was complaining of constipation. The patient became lightheaded and unresponsive in addition to having a large bloody bowel movement at home. This had prompted the call to EMS for hospital transport. Patient son understands that she will not be discharged on Eliquis. But given her history of stroke and chronic CAD, the patient will be discharged on aspirin 81 mg daily. Disposition Plan: Continue medical management Total Time Spent with Patient (Minutes): 45 minutes History Interval history: Patient continues to have mild hematochezia this morning. Hospitalist Physical - Constitutional Vitals: Temp Pulse Resp BP Pulse Ox 98.3 F 92 H 16 128/51 98 03/29/22 12:18 03/29/22 12:18 03/29/22 03:41 03/29/22 12:18 03/29/22 12:18 General appearance: Present: no acute distress, cachectic, other (Sleeping comfortably in bed) - EENT Eyes: Present: PERRL, EOM intact ENT: hearing intact, clear oral mucosa, edentulous - Neck Neck: Present: supple, normal ROM - Respiratory Respiratory effort: normal Respiratory: bilateral: CTA - Cardiovascular Rhythm: irregularly irregular Heart Sounds: Present: S1 & S2 - Extremities Extremities: no ischemia, pulses intact, pulses symmetrical, No edema, normal temperature, normal color Peripheral Pulses: within normal limits - Abdominal General gastrointestinal: soft, non-tender, non-distended, normal bowel sounds - Integumentary Integumentary: Present: clear, warm, dry - Psychiatric Psychiatric: appropriate mood/affect, cooperative - Neurologic Neurologic: CNII-XII intact, moves all extremities - Allied Health Allied health notes reviewed: nursing Results - Labs CBC & Chem 7: 03/29/22 03:07 03/29/22 03:07 Labs: Laboratory Last Values WBC 7.7 K/mm3 (4.5-11.0) 03/29/22 03:07 RBC 2.93 M/mm3 (3.65-5.03) L 03/29/22 03:07 Hgb 9.3 gm/dl (10.1-14.3) L 03/29/22 03:07 Hct 28.1 % (30.3-42.9) L 03/29/22 03:07 MCV 96 fl (79-97) 03/29/22 03:07 MCH 32 pg (28-32) 03/29/22 03:07 MCHC 33 % (30-34) 03/29/22 03:07 RDW 13.7 % (13.2-15.2) 03/29/22 03:07 Plt Count 237 K/mm3 (140-440) 03/29/22 03:07 Lymph % (Auto) Back Pad Inspector 03/29/22 03:07 Curry % (Auto) Back Pad Inspector 03/29/22 03:07 Eos % (Auto) Back Pad Inspector 03/29/22 03:07 Baso % (Auto) Back Pad Inspector 03/29/22 03:07 Lymph # (Auto) Back Pad Inspector 03/29/22 03:07 Curry # (Auto) Back Pad Inspector 03/29/22 03:07 Eos # (Auto) Back Pad Inspector 03/29/22 03:07 Baso # (Auto) Back Pad Inspector 03/29/22 03:07 Seg Neutrophils % Back Pad Inspector 03/29/22 03:07 Seg Neutrophils # Back Pad Inspector 03/29/22 03:07 PT 14.6 Sec. (12.2-14.9) 03/26/22 20:18 INR 1.03 (0.87-1.13) 03/26/22 20:18 Sodium 140 mmol/L (137-145) 03/29/22 03:07 Potassium 3.9 mmol/L (3.6-5.0) 03/29/22 03:07 Chloride 108.7 mmol/L (98-107) H 03/29/22 03:07 Carbon Dioxide 19 mmol/L (22-30) L 03/29/22 03:07 Anion Gap 16 mmol/L 03/29/22 03:07 BUN 11 mg/dL (7-17) 03/29/22 03:07 Creatinine 0.9 mg/dL (0.6-1.2) 03/29/22 03:07 Estimated GFR 60 ml/min 03/29/22 03:07 BUN/Creatinine Ratio 12 % 03/29/22 03:07 Glucose 103 mg/dL (65-100) H 03/29/22 03:07 Calcium 9.1 mg/dL (8.4-10.2) 03/29/22 03:07 Total Bilirubin 0.90 mg/dL (0.1-1.2) 03/26/22 23:28 AST 15 units/L (5-40) 03/26/22 23:28 ALT 10 units/L (7-56) 03/26/22 23:28 Alkaline Phosphatase 113 units/L (35-129) 03/26/22 23:28 Total Protein 6.4 g/dL (6.3-8.2) 03/26/22 23:28 Albumin 3.0 g/dL (3.9-5) L 03/26/22 23:28 Albumin/Globulin Ratio 0.9 % 03/26/22 23:28 Lipase 28 units/L (13-60) 03/26/22 23:28 Franco/IV: Voiding Method External Female Catheter Active Medications - Current Medications Current Medications: Generic Name Dose Route Start Last Admin Trade Name Freq PRN Reason Stop Dose Admin Acetaminophen 650 mg 03/27/22 01:30 Acetaminophen 325 Mg Tab PO Q4H PRN Pain MILD(1-3)/Fever >100.5/GILLIAM Albuterol 2.5 mg 03/27/22 22:16 Albuterol 2.5 Mg/3 Ml Nebu IH Q4HRT PRN Shortness Of Breath Amiodarone HCl 200 mg 03/27/22 10:00 03/29/22 09:47 Amiodarone 200 Mg Tab PO 200 mg DAILY ERICKSON Administration Aspirin 81 mg 03/29/22 10:00 03/29/22 09:46 Aspirin 81 Mg Tab Chew PO Not Given QDAY ERICKSON Hydromorphone HCl 0.5 mg 03/27/22 01:30 Hydromorphone 1 Mg/1 Ml Inj IV Q3H PRN Pain , Severe (7-10) Lisinopril 10 mg 03/29/22 10:00 03/29/22 09:48 Lisinopril 10 Mg Tab PO 10 mg QDAY ERICKSON Administration Morphine Sulfate 2 mg 03/27/22 01:30 Morphine 2 Mg/1 Ml Inj IV Q4H PRN Pain, Moderate (4-6) Ondansetron HCl 4 mg 03/27/22 01:30 Ondansetron 4 Mg/2 Ml Inj IV Q8H PRN Nausea And Vomiting Pantoprazole Sodium 40 mg 03/28/22 10:00 03/29/22 09:48 Pantoprazole 40 Mg Inj IV 40 mg BID ERICKSON Administration Sodium Chloride 10 ml 03/27/22 10:00 03/29/22 09:48 Sodium Chloride 0.9% 10 Ml Flush Syringe IV 10 ml BID ERICKSON Administration Sodium Chloride 10 ml 03/27/22 02:00 Sodium Chloride 0.9% 10 Ml Flush Syringe IV PRN PRN LINE FLUSH Nutrition/Malnutrition Assess - Dietary Evaluation Nutrition/Malnutrition Findings: Nutrition Notes Start: 03/27/22 12:34 Freq: Status: Active Protocol: Document 03/27/22 12:34 BIRANNE (Rec: 03/27/22 13:04 BRIANNE [id number]) Nutrition Notes Need for Assessment generated from: platform supervisor,MST Initial or Follow up Assessment Current Diagnosis Coronary Artery Disease,Heart Failure,Stroke,Hyperlipidemia Other Pertinent Diagnosis Hematochezia, Colitis, Atrial Fibrilation w/RVR, Dementia, . .. Current Diet Clear Liquids Diet + D Suppl ( from L 03/27). Labs/Tests 03/27: BUN 22, Glu 145. Pertinent Medications 03/27: Nutritionally unremarkable. Height 5 ft 4 in Weight 50 kg [place] Body Weight (kg) 54.54 BMI 18.9 Intake Prior to Admission Good Weight change and time frame Pt states being unsure if loss body weight [employer]. Weight Status Appropriate Subjective/Other Information RD consult for risk of malnutrition assessment. Pt has been NPO since admission, just advanced to PO diet, no reports available on Pt's PO intake at the time, will assess at F/U. I will prescribe Dietary Supplementation to compensate for poor or insufficient PO intake of meals. Pt is on Room Air, O2 saturation @ 98%, according to Physical Assessment History notes. Pt shows no signs of concern for risk of malnutrition at the time, according to Physical Assessment History notes. Pt has missing teeth, according to Physical Assessment History notes. Pt presents GI Bleed, according to History & Physical notes. Percent of energy/protein needs met: Prescribed Clear Liquids Diet provides for energy/protein needs (590 Kcal/16 g) during LOS; additionally, Dietary Supplements will compensate for possible poor or insufficient PO intake of meals with 720 Kcal and 24 g of protein. Burn Absent Trauma Absent GI Symptoms Other Food Allergy No Skin Integrity/Comment Assessment WNL. Current % PO Other Minimum of two criteria No #1 Nutrition Diagnosis Altered GI function Etiology Possibly Colitis. As Evidenced by Signs and Symptoms GI Bleed/Hematochezia Is patient on ventilator? No Is Patient Ambulatory and/or Out of Bed No REE-([facility]-confined to bed) 1123.560 Kcal/Kg value to use for calculation 28 Approximate Energy Requirements Using 1400 kcal/Kg Calculation Used for Recommendations Kcal/kg Additional Notes Protein: 1.25-1.5 g/Kg IBW; 69 -83 g/day. Fluids: 1 ml/Kcal, or as per MD. Nutrition Intervention Change Diet Order: Continue Clear Liquids Diet. Advance to Full Liquids Diet when pertinent, as tolerated. Add Supplement/Snack (indicate name/kcal Start 8 fl oz Ensure Clear; /protein ) TID. Provides kCal: 720 Provides Protein (gm) 24 Goal #1 Compensate, through dietary supplementation, for possible poor or insufficient PO intake of meals during LOS. Goal #2 Adjust the dietary intervention to better serve Pt's needs and clinical conditions during LOS. Goal #3 Maintain body weight within +/ -3% of admission body weight during LOS. Follow-Up By: 03/31/22 Additional Comments Continue monitoring food tolerance, %PO intake of meals , and BM.
[2022-03-30 05:51] LABS: Hematocrit 29.3 % (30.3-42.9); Hemoglobin 9.6 gm/dl (10.1-14.3)
[2022-03-30 06:04] LABS: BUN/Creatinine Ratio 11; Blood Urea Nitrogen 9 mg/dL (7-17); Calcium 9.4 mg/dL (8.4-10.2); Hemolysis Index 1
[2022-03-30] MEDS ORDERED: PANTOPRAZOLE 40 MG TAB PO SCH ×2 (07:30→13:00)
--- NOTE | 2022-03-30 11:28 | Gastroenterology Progress Note ---
Assessment and Plan Patient symptoms improving hemoglobin is stable Therefore clinical presentation most consistent with stercoral colitis with rectal mass less likely given improving symptoms Recommend medications to prevent recurrent constipation (I started patient on Colace ) from GI perspective this does not appear to be upper GI source and can stop PPI GI will sign off please call us back if patient has any further significant GI bleeding or acute drop in hemoglobin over 1 g - Patient Problems (1) Bleeding per rectum Current Visit: Yes Status: Acute (2) Colitis Current Visit: Yes Status: Acute (3) Hematochezia Current Visit: Yes Status: Acute Subjective Date of service: 03/30/22 Principal diagnosis: gi bleed Interval history: Patient unable to provide a history due to dementia Patient examined with the aid of the nurse, she had dark brown stool in her diaper with a very small amount of bright red blood. The stool was soft. Patient not appearing to complain of abdominal pain at this juncture Objective - Constitutional Vitals: Temp Pulse Resp BP Pulse Ox 98.6 F 72 16 118/59 99 03/30/22 04:01 03/30/22 04:01 03/30/22 04:01 03/30/22 04:01 03/30/22 04:01 General appearance: no acute distress - EENT Eyes: EOM intact - Respiratory Respiratory effort: normal - Gastrointestinal General gastrointestinal: Present: soft Rectal Exam: other (Patient examined with the aid of the nurse, she had dark brown stool in her diaper with a very small amount of bright red blood. The stool was soft.) - Labs CBC & Chem 7: 03/30/22 05:03 03/30/22 05:03 Labs: Laboratory Results - last 24 hr 03/30/22 03/30/22 05:03 05:03 Hgb 9.6 L Hct 29.3 L Sodium 139 Potassium 3.6 Chloride 105.7 Carbon Dioxide 21 L Anion Gap 16 BUN 9 Creatinine 0.8 Estimated GFR > 60 BUN/Creatinine Ratio 11 Glucose 105 H Calcium 9.4
--- NOTE | 2022-03-30 12:20 | Discharge Summary ---
Providers - Providers Date of Admission: 03/27/22 01:12 Date of discharge: 03/30/22 Attending physician: MYNOR RAMIREZ MD 03/27/22 01:12 Consult to Physician [CONS] Routine Comment: Consulting Provider: JOHN KHALIL Physician Instructions: Reason For Exam: Rectal bleeding Primary care physician: TATYANA BA Hospitalization Reason for admission: Hematochezia, hypotension Condition: Fair Pertinent studies: Reviewed. Procedures: None. Hospital course: Patient is a 86-year-old female past medical history of CVA, breast cancer, arthritis, vascular dementia, hypercholesterolemia, atrial fibrillation (not on anticoagulation) who presented to the ED with rectal bleeding and unresponsiveness that the patient's son recognize. In the ED the patient had gross hematochezia, and she was initiated on IV pantoprazole drip and fluid resuscitation. Gastroenterology was consulted for further management due to concerns for possible infection, the patient was started on Zosyn 4.5 g every 8 hours that was eventually discontinued. CT abdomen and pelvis revealed "moderate stool within the rectal vault with minimal wall thickening and perirectal fat stranding. Early stercoral colitis." Given the patient's advanced age and dementia, the decision was made to manage her hematochezia conservatively. The patient's bleeding has since resolved, and the patient has been recommended to initiate Colace to prevent constipation. Patient is medically clear for discharge. Disposition: 01 HOME / SELF CARE / HOMELESS Final Discharge Diagnosis (Prints w/discharge instructions): Hematochezia, stercoral colitis, leukocytosis, acute blood loss anemia, hypotension, hypertension, atrial fibrillation with RVR, congestive heart failure, chronic CAD, history of CVA, hyperlipidemia, baseline dementia, severe protein caloric malnutrition Time spent for discharge: 45 min Core Measure Documentation - Palliative Care Palliative Care/ Comfort Measures: Not Applicable - Core Measures Any of the following diagnoses?: none Exam - Constitutional Vitals: Temp Pulse Resp BP Pulse Ox 98.6 F 72 16 118/59 99 03/30/22 04:01 03/30/22 04:01 03/30/22 04:01 03/30/22 04:01 03/30/22 04:01 General appearance: Present: no acute distress, cachectic - EENT Eyes: Present: PERRL, EOM intact ENT: hearing intact, clear oral mucosa, dentition normal - Neck Neck: Present: supple, normal ROM - Respiratory Respiratory effort: normal Respiratory: bilateral: CTA - Cardiovascular Rhythm: irregularly irregular Heart Sounds: Present: S1 & S2 - Extremities Extremities: no ischemia, pulses intact, pulses symmetrical, No edema, normal temperature, normal color Peripheral Pulses: within normal limits - Abdominal General gastrointestinal: Present: soft, non-tender, non-distended, normal bowel sounds Female genitourinary: Present: deferred - Rectal Rectal Exam: deferred - Integumentary Integumentary: Present: clear, warm, dry - Musculoskeletal Musculoskeletal: generalized weakness - Psychiatric Psychiatric: appropriate mood/affect, intact judgment & insight, memory intact, cooperative - Neurologic Neurologic: CNII-XII intact, moves all extremities - Allied Health Allied health notes reviewed: nursing Plan Activity: advance as tolerated Diet: low salt Additional Instructions: Patient is a 86-year-old female past medical history of CVA, breast cancer, arthritis, vascular dementia, hypercholesterolemia, atrial fibrillation (not on anticoagulation) who presented to the ED with rectal bleeding and unresponsiveness that the patient's son recognize. In the ED the patient had gross hematochezia, and she was initiated on IV pantoprazole drip and fluid resuscitation. Gastroenterology was consulted for further management due to concerns for possible infection, the patient was started on Zosyn 4.5 g every 8 hours that was eventually discontinued. CT abdomen and pelvis revealed "moderate stool within the rectal vault with minimal wall thickening and perirectal fat stranding. Early stercoral colitis." Given the patient's advanced age and dementia, the decision was made to manage her hematochezia conservatively. The patient's bleeding has since resolved, and the patient has been recommended to initiate Colace to prevent constipation. Patient is medically clear for discharge. Care Plan Goals: Patient is medically clear for discharge. Assessment: Patient is a 86-year-old female past medical history of CVA, breast cancer, arthritis, vascular dementia, hypercholesterolemia, atrial fibrillation (not on anticoagulation) who presented to the ED with rectal bleeding and unresponsiveness that the patient's son recognize. In the ED the patient had gross hematochezia, and she was initiated on IV pantoprazole drip and fluid resuscitation. Gastroenterology was consulted for further management due to concerns for possible infection, the patient was started on Zosyn 4.5 g every 8 hours that was eventually discontinued. CT abdomen and pelvis revealed "moderate stool within the rectal vault with minimal wall thickening and perirectal fat stranding. Early stercoral colitis." Given the patient's advanced age and dementia, the decision was made to manage her hematochezia conservatively. The patient's bleeding has since resolved, and the patient has been recommended to initiate Colace to prevent constipation. Patient is medically clear for discharge. Follow up with: TATYANA BA MD [Primary Care Provider] - 7 Days Forms: Accompanied Note Prescriptions: Docusate Sodium [Colace CAP] 100 mg PO BID #60 capsule lisinopriL [Zestril TAB] 10 mg PO QDAY #30 tablet
[2022-03-30] MEDS: LISINOPRIL 10 MG TAB PO SCH (12:36)
[2022-03-30] MEDS: ASPIRIN 81 MG TAB CHEW PO SCH (12:37)
[2022-03-30] MEDS: AMIODARONE 200 MG TAB PO SCH (12:37)
[2022-03-30] MEDS ORDERED: METOPROLOL TARTRATE 50 MG TAB PO SCH (16:00)
[2022-03-30 16:57] VITALS: BP 115/64
[2022-03-30] MEDS ORDERED: DOCUSATE SODIUM 100 MG CAP PO SCH (22:00)
== END 2022-03-30 18:29 | disposition home or self-care (01) ==
LOC: ED 19:50 → 4A 03-27 01:12 → INTOOBSV 03-27 01:12 → 4A 03-27 01:45
PROVIDERS: ADMIT Hospitalist; ATTEND Student in an Organized Health Care Education/Training Program
DX: K62.5 Hemorrhage of anus and rectum (principal); K52.9 Noninfective gastroenteritis and colitis, unspecified; I25.10 Atherosclerotic heart disease of native coronary artery without angina pectoris; I48.20 Chronic atrial fibrillation, unspecified; I11.0 Hypertensive heart disease with heart failure; I50.9 Heart failure, unspecified; M19.90 Unspecified osteoarthritis, unspecified site; F03.90 Unspecified dementia, unspecified severity, without behavioral disturbance, psychotic disturbance, mood disturbance, and anxiety; I95.9 Hypotension, unspecified; E78.5 Hyperlipidemia, unspecified; D50.0 Iron deficiency anemia secondary to blood loss (chronic); D72.829 Elevated white blood cell count, unspecified; E78.00 Pure hypercholesterolemia, unspecified; E43 Unspecified severe protein-calorie malnutrition; Z68.1 Body mass index [BMI] 19.9 or less, adult; Z86.73 Personal history of transient ischemic attack (TIA), and cerebral infarction without residual deficits; Z95.1 Presence of aortocoronary bypass graft; Z95.0 Presence of cardiac pacemaker; Z79.899 Other long term (current) drug therapy; Z98.890 Other specified postprocedural states
CPT/HCPCS: 36415; 74177; 80048; 80053; 83690; 85014; 85018; 85025; 85610; 93005; 94640; 96361; 96365; 96366; 96368; 96375; 96376; 99285; C9113; G0378; J2543; J7030; J7070; J7120; Q9967; 96374

== ENCOUNTER 2022-04-19 22:19 | Inpatient (IN) | payer MEDICARE ==
[2022-04-19] MEDS ORDERED: SODIUM CHLORIDE 0.9% 1000 ML 1,000 ML IV ONE ×2 (23:02)
--- NOTE | 2022-04-19 23:09 | Emergency Department Report ---
HPI - General Chief Complaint: Weakness Time Seen by Provider: 04/19/22 22:57 - HPI HPI: Room 25 Patient is 86-year-old female present with a chief complaint of not eating. The patient's son called hospice because the patient has not been eating lately. The patient is reportedly full code although the son has expressed interest in getting the patient placed in hospice. Patient is currently not in hospice. Patient has a history of dementia does not answer questions. With EMS the patient was found to be tachycardic and they report a heart rate that transiently went up into the 200s. In the ED the patient is tachycardic at 135. ED Past Medical Hx - Past Medical History Previous Medical History?: Yes Hx CVA: Yes Hx Arthritis: Yes Hx Dementia: Yes Additional medical history: HIGH CHOLESTEROL. Afib - Surgical History Past Surgical History?: Yes Hx Coronary Stent: Yes Hx Pacemaker: Yes Hx Breast Surgery: Yes (left breast) Additional Surgical History: RT MASTECTOMY - Family History Family history: no significant - Social History Smoking Status: Unknown if ever smoked Substance Use Type: None - Medications Home Medications: Home Medications Medication Instructions Recorded Confirmed Last Taken Type ALBUTEROL NEB's [Proventil 0.083% 2.5 mg IH Q4HRT PRN #100 nebu 02/14/1904/13 Unknown Rx NEBS] Amiodarone [Cordarone 200 MG TAB] 200 mg PO DAILY #20 tablet 02/14/19 03/27/22 03/23/22 Rx carvediloL [Coreg] 3.125 mg PO BID #60 tablet 02/14/19 03/27/22 03/23/22 Rx Docusate Sodium [Colace CAP] 100 mg PO BID #60 capsule 03/30/22 Unknown Rx lisinopriL [Zestril TAB] 10 mg PO QDAY #30 tablet 03/30/22 Unknown Rx ED Review of Systems ROS: Stated complaint: LACK OF FOOD INTAKE Other details as noted in HPI Comment: Unobtainable due to pts medical conditions (Dementia/patient not answering) Physical Exam - Physical Exam Vital Signs: Vital Signs 04/19/22 22:22 Temperature 98.4 F Pulse Rate 135 H Respiratory 22 Rate Blood Pressure 165/110 O2 Sat by Pulse 95 Oximetry Vital Signs 04/19/22 04/20/22 04/20/22 22:22 00:01 00:16 Temperature 98.4 F Pulse Rate 135 H 158 H 157 H Respiratory 22 20 22 Rate Blood Pressure 165/110 110/64 Blood Pressure [Right] O2 Sat by Pulse 95 91 Oximetry 04/20/22 04/20/22 04/20/22 00:30 00:42 00:44 Temperature Pulse Rate 156 H 150 H Respiratory 17 Rate Blood Pressure 110/64 Blood Pressure 106/64 [Right] O2 Sat by Pulse 93 Oximetry Physical Exam: GENERAL: The patient is well-developed elderly female lying on stretcher with mouth open looking around but not answering questions HEENT: Normocephalic. Atraumatic. Extraocular motions are intact. Patient has dry mucous membranes. NECK: Supple. Trachea midline CHEST/LUNGS: Clear to auscultation. There is no respiratory distress noted. HEART/CARDIOVASCULAR: Regular. There is tachycardia. There is no gallop rub or murmur. ABDOMEN: Abdomen is soft, nontender. Patient has normal bowel sounds. There is no abdominal distention. SKIN: There is no rash. There is no edema. There is no diaphoresis. NEURO: The patient is awake and looks around the room but does not answer questions. Patient not cooperative with neurologic exam MUSCULOSKELETAL: There is no evidence of acute injury. ED Course Vital Signs 04/19/22 22:22 Temperature 98.4 F Pulse Rate 135 H Respiratory 22 Rate Blood Pressure 165/110 O2 Sat by Pulse 95 Oximetry - Reevaluation(s) Reevaluation #1: 04/20/22 01:33 Discussed with patient's son who states he would like to make the patient DNR. ED Medical Decision Making - Lab Data Result diagrams: 04/19/22 23:41 Laboratory Tests 04/19/22 04/19/22 04/19/22 23:41 23:41 23:41 PT 16.4 H INR 1.18 H APTT 28.0 Sodium 163 H* Potassium 5.0 Chloride 124.5 H Carbon Dioxide 24 Anion Gap 20 BUN 57 H Creatinine 1.5 H Estimated GFR 33 BUN/Creatinine Ratio 38 Glucose 159 H Calcium 11.7 H Total Bilirubin 0.70 AST 41 H ALT 20 Alkaline Phosphatase 124 Total Creatine Kinase 313 H CK-MB (CK-2) 2.8 CK-MB (CK-2) Rel Index 0.8 Troponin T 0.283 H* Total Protein 7.5 Albumin 2.4 L Albumin/Globulin Ratio 0.5 CBC pending-Per lab currently having technical issues with analyzer - EKG Data -: EKG Interpreted by Me EKG shows normal: sinus rhythm Rate: tachycardia (120 bpm) - EKG Data When compared to previous EKG there are: previous EKG unavailable Interpretation: nonspecific ST-T wave solo - Radiology Data Radiology results: image reviewed (Chest x-ray) interpreted by me: Chest x-ray-no definite focal infiltrates, no pneumothorax - Differential Diagnosis Dehydration, A. fib with RVR, symptomatic anemia, electrolyte abnormality Critical care attestation.: If time is entered above; I have spent that time in minutes in the direct care of this critically ill patient, excluding procedure time. ED Disposition Clinical Impression: Dehydration, Hypernatremia, Acute kidney injury, Failure to thrive Disposition: ADMITTED INPATIENT Is pt being admited?: Yes Does the pt Need Aspirin: No Condition: Serious Time of Disposition: 01:12 (Care transferred to hospitalist (Dr Jarrett))
[2022-04-20 00:10] LABS: INR 1.18 (0.87-1.13)
[2022-04-20] MEDS ORDERED: SODIUM CHLORIDE 0.9% 1000 ML 1,000 ML IV ONE ×2 (00:20→01:03)
[2022-04-20 00:23] LABS: Creatine Kinase MB 2.8 ng/mL (0.0-4.0)
[2022-04-20 00:24] LABS: Albumin 2.4 g/dL (3.9-5); Calcium 11.7 mg/dL (8.4-10.2)
--- NOTE | 2022-04-20 02:02 | XRay Report ---
CHEST 1 VIEW INDICATION / CLINICAL INFORMATION: Tachycardia. COMPARISON: Chest x-ray 02/09/2019 FINDINGS: SUPPORT DEVICES: Cardiac pacemaker stable. HEART / MEDIASTINUM: No significant abnormality. LUNGS / PLEURA: Mild vascular prominence within the central chest and enlargement of the right hilar vasculature. Lungs are clear. BONES: No significant osseous abnormality. ADDITIONAL FINDINGS: No significant additional findings. IMPRESSION: 1. No active cardiopulmonary disease. Signer Name: Dylon Jeffers II, MD Signed: 04/20/2022 1:58 AM Workstation Name: [id number]
[2022-04-20 02:36] LABS: Basophils % (Auto) 0.2 % (0.0-1.8); Eosinophils % (Auto) 0.2 % (0.0-4.3); Lymphocytes # (Auto) 1.4 K/mm3 (1.2-5.4); Lymphocytes % (Auto) 8.5 % (13.4-35.0); Mean Corpuscular HGB Conc 30 % (30-34); Mean Corpuscular Volume 100 fl (79-97); Monocytes # (Auto) 0.6 K/mm3 (0.0-0.8); Monocytes % (Auto) 3.9 % (0.0-7.3); Platelet Count 411 K/mm3 (140-440); Red Blood Count 3.73 M/mm3 (3.65-5.03); Red Cell Distribution Width 15.5 % (13.2-15.2)
[2022-04-20 02:42] LABS: Hemoglobin 11.1 gm/dl (10.1-14.3)
[2022-04-20 02:43] LABS: Hematocrit 37.4 % (30.3-42.9)
[2022-04-20] MEDS ORDERED: MAGNESIUM HYDROXIDE (MOM) ORAL LIQD UDC PO PRN (03:22)
[2022-04-20] MEDS ORDERED: MORPHINE 4 MG/1 ML INJ IV PRN (03:22)
[2022-04-20] MEDS ORDERED: ACETAMINOPHEN 325 MG TAB PO PRN (03:22)
[2022-04-20] MEDS ORDERED: ONDANSETRON 4 MG/2 ML INJ IV PRN (03:22)
[2022-04-20] MEDS ORDERED: SODIUM CHLORIDE 0.9% 1000 ML 1,000 ML IV SCH (03:30)
[2022-04-20 03:44] LABS: Chol/HDL Ratio 4.22 %
[2022-04-20] MEDS: MORPHINE 2 MG/1 ML INJ IV PRN (04:09)
--- NOTE | 2022-04-20 07:37 | History and Physical Report ---
History of Present Illness Date of examination: 04/20/22 Date of admission: 04/20/22 03:22 Chief complaint: Decreased oral intake History of present illness: Patient is an 86-year-old -[place] female with significant past medical history of coronary artery disease, CVA, hyperlipidemia and dementia brought into the emergency room for evaluation of decreased oral intake. Patient who was by the bedside was able to provide most of the history. Upon arrival in the emergency room patient was found to be tachycardic and hypotensive. She was started on IV fluid with some improvement in her blood pressure. Work-up in the emergency room today, significant findings on the labs were leukocytosis of 16.7, hyponatremia of 163,BUN of 57 and creatinine of 1.5. Troponin of 0.283. Chest x-ray shows no acute findings. Son wishes patient to be a DNR. Past History Past Medical History: atrial fib, arthritis, hyperlipidemia, stroke Past Surgical History: PTCA, Other (Right mastectomy, surgery left breast, pacemaker placement) Social history: no significant social history Family history: no significant family history Medications and Allergies Allergies Allergy/AdvReac Type Severity Reaction Status Date / Time No Known Allergies Allergy Verified 02/01/16 19:17 Home Medications Medication Instructions Recorded Confirmed Last Taken Type ALBUTEROL NEB's [Proventil 0.083% 2.5 mg IH Q4HRT PRN #100 nebu 02/14/19 03/27/22 Unknown Rx NEBS] Amiodarone [Cordarone 200 MG TAB] 200 mg PO DAILY #20 tablet 02/14/19 03/27/22 03/23/22 Rx carvediloL [Coreg] 3.125 mg PO BID #60 tablet 02/14/19 03/27/22 03/23/22 Rx Docusate Sodium [Colace CAP] 100 mg PO BID #60 capsule 03/30/22 Unknown Rx lisinopriL [Zestril TAB] 10 mg PO QDAY #30 tablet 03/30/22 Unknown Rx Active Meds: Active Medications Acetaminophen (Acetaminophen 325 Mg Tab) 650 mg PO Q4H PRN PRN Reason: Pain MILD(1-3)/Fever >100.5/GILLIAM Sodium Chloride (Nacl 0.9% 1000 Ml) 1,000 mls @ 125 mls/hr IV DIRECT ERICKSON Magnesium Hydroxide (Magnesium Hydroxide (Mom) Oral Liqd Udc) 30 ml PO Q4H PRN PRN Reason: Constipation Morphine Sulfate (Morphine 2 Mg/1 Ml Inj) 2 mg IV Q4H PRN PRN Reason: Pain, Moderate (4-6) Last Admin: 04/20/22 04:09 Dose: 2 mg Morphine Sulfate (Morphine 4 Mg/1 Ml Inj) 4 mg IV Q4H PRN PRN Reason: Pain , Severe (7-10) Ondansetron HCl (Ondansetron 4 Mg/2 Ml Inj) 4 mg IV Q8H PRN PRN Reason: Nausea And Vomiting Sodium Chloride (Sodium Chloride 0.9% 10 Ml Flush Syringe) 10 ml IV BID ERICKSON Sodium Chloride (Sodium Chloride 0.9% 10 Ml Flush Syringe) 10 ml IV PRN PRN PRN Reason: LINE FLUSH Review of Systems ROS unobtainable: due to mental status Exam - Constitutional Vitals: Temp Pulse Resp BP Pulse Ox 98.4 F 90 17 124/68 93 04/19/22 22:22 04/20/22 06:53 04/20/22 00:30 04/20/22 06:53 04/20/22 00:44 General appearance: Present: no acute distress, well-nourished, other (Very dry oral mucosa) - EENT Eyes: Present: PERRL, EOM intact. Absent: scleral icterus ENT: hearing intact, clear oral mucosa, dentition normal - Neck Neck: Present: supple, normal ROM - Respiratory Respiratory effort: normal Respiratory: bilateral: CTA - Cardiovascular Rhythm: regular Heart Sounds: Present: S1 & S2. Absent: gallop, systolic murmur, diastolic murmur, rub, click - Extremities Extremities: no ischemia, pulses intact, pulses symmetrical, No edema, normal temperature, Full ROM Peripheral Pulses: within normal limits - Abdominal General gastrointestinal: Present: soft, non-tender, non-distended, normal bowel sounds. Absent: mass - Integumentary Integumentary: Present: clear, warm, dry, decreased turgor. Absent: rash - Musculoskeletal Musculoskeletal: strength equal bilaterally, other (Bilateral heel decubitus in the lower extremities) - Psychiatric Psychiatric: cooperative - Neurologic Neurologic: CNII-XII intact, no focal deficits, moves all extremities - Additional findings Additional findings: Skin: Decubitus ulcers on heels of both feet. HEART Score - HEART Score Troponin: Troponin T 0.283 ng/mL (0.00-0.029) H* 04/19/22 23:41 Results - Labs CBC & Chem 7: 04/19/22 23:41 04/19/22 23:41 Labs: Abnormal lab results 04/19/22 04/19/22 04/19/22 Range/Units 23:41 23:41 23:41 WBC 16.7 H (4.5-11.0) K/mm3 MCV 100 H (79-97) fl RDW 15.5 H (13.2-15.2) % Lymph % (Auto) 8.5 L (13.4-35.0) % Seg Neutrophils % 87.2 H (40.0-70.0) % Seg Neutrophils # 14.6 H (1.8-7.7) K/mm3 PT 16.4 H (12.2-14.9) Sec. INR 1.18 H (0.87-1.13) Sodium 163 H* (137-145) mmol/L Chloride 124.5 H (98-107) mmol/L BUN 57 H (7-17) mg/dL Creatinine 1.5 H (0.6-1.2) mg/dL Glucose 159 H (65-100) mg/dL Calcium 11.7 H (8.4-10.2) mg/dL AST 41 H (5-40) units/L Total Creatine Kinase 313 H (30-135) units/L Troponin T (0.00-0.029) ng/mL Albumin 2.4 L (3.9-5) g/dL Triglycerides (2-149) mg/dL HDL Cholesterol (40-59) mg/dL 04/19/22 Range/Units 23:41 WBC (4.5-11.0) K/mm3 MCV (79-97) fl RDW (13.2-15.2) % Lymph % (Auto) (13.4-35.0) % Seg Neutrophils % (40.0-70.0) % Seg Neutrophils # (1.8-7.7) K/mm3 PT (12.2-14.9) Sec. INR (0.87-1.13) Sodium (137-145) mmol/L Chloride (98-107) mmol/L BUN (7-17) mg/dL Creatinine (0.6-1.2) mg/dL Glucose (65-100) mg/dL Calcium (8.4-10.2) mg/dL AST (5-40) units/L Total Creatine Kinase (30-135) units/L Troponin T 0.283 H* (0.00-0.029) ng/mL Albumin (3.9-5) g/dL Triglycerides 167 H (2-149) mg/dL HDL Cholesterol 36 L (40-59) mg/dL Assessment and Plan Assessment: Failure to thrive Dehydration Hypernatremia PREETI History of dementia History of A. fib History of CVA Elevated troponin-possibly a type II troponin leak Plan: Patient admitted and placed on IV fluid. Dietary consult to be placed for evaluation. We will resume routine home medications once patient is able to tolerate p.o. intake. Will continue to monitor chemistry closely. Consult will be placed to wound care evaluation of decubitus ulcers DVT prophylaxis : Subcutaneous heparin CODE STATUS: Patient is a DNR
[2022-04-20 10:20] LABS: Calcium 11.1 mg/dL (8.4-10.2)
--- NOTE | 2022-04-20 10:36 | Progress Note ---
Assessment and Plan Assessment and plan: Patient is an 86-year-old -[place] female with significant past medical history of coronary artery disease, CVA, hyperlipidemia and dementia brought into the emergency room for evaluation of decreased oral intake. Work-up in the emergency room with significant findings of leukocytosis with WBC 16.7, hyponatremia of 163, BUN of 57 and creatinine of 1.5. Troponin of 0.283. Adult failure to thrive Acute kidney injury secondary to vasomotor nephropathy/dehydration Hypernatremia Leukocytosis History of vascular dementia History of atrial fibrillation History of CVA Elevated troponin Hyperlipidemia 04/20/2022. We will check a urinalysis to rule out UTI given the leukocytosis. We will also check blood cultures. Per the ER record, the patient's son is considering hospice. We will continue with supportive care with IV fluid hydration and changed to half normal saline and follow-up BMP. Check renal ultrasound. Elevated troponin is likely secondary to acute kidney injury. History Interval history: No new issues since admission Hospitalist Physical - Constitutional Vitals: Temp Pulse Resp BP Pulse Ox 98.4 F 90 17 116/69 93 04/19/22 22:22 04/20/22 08:00 04/20/22 00:30 04/20/22 08:00 04/20/22 00:44 General appearance: Present: no acute distress, well-nourished, other (Very dry oral mucosa) - EENT Eyes: Present: PERRL, EOM intact ENT: hearing intact, clear oral mucosa, dentition normal - Neck Neck: Present: supple, normal ROM - Respiratory Respiratory effort: normal Respiratory: bilateral: CTA - Cardiovascular Rhythm: regular Heart Sounds: Present: S1 & S2. Absent: gallop, rub - Extremities Extremities: no ischemia, No edema, Full ROM - Abdominal General gastrointestinal: soft, non-tender, non-distended, normal bowel sounds - Integumentary Integumentary: Present: clear, warm, dry - Neurologic Neurologic: CNII-XII intact, moves all extremities HEART Score - HEART Score Troponin: Troponin T 0.283 ng/mL (0.00-0.029) H* 04/19/22 23:41 Results - Labs CBC & Chem 7: 04/19/22 23:41 04/20/22 09:23 Labs: Laboratory Last Values WBC 16.7 K/mm3 (4.5-11.0) H 04/19/22 23:41 RBC 3.73 M/mm3 (3.65-5.03) 04/19/22 23:41 Hgb 11.1 gm/dl (10.1-14.3) 04/19/22 23:41 Hct 37.4 % (30.3-42.9) 04/19/22 23:41 MCV 100 fl (79-97) H 04/19/22 23:41 MCH 30 pg (28-32) 04/19/22 23:41 MCHC 30 % (30-34) 04/19/22 23:41 RDW 15.5 % (13.2-15.2) H 04/19/22 23:41 Plt Count 411 K/mm3 (140-440) 04/19/22 23:41 Lymph % (Auto) 8.5 % (13.4-35.0) L 04/19/22 23:41 [place] % (Auto) 3.9 % (0.0-7.3) 04/19/22 23:41 Eos % (Auto) 0.2 % (0.0-4.3) 04/19/22 23:41 Baso % (Auto) 0.2 % (0.0-1.8) 04/19/22 23:41 Lymph # (Auto) 1.4 K/mm3 (1.2-5.4) 04/19/22 23:41 [place] # (Auto) 0.6 K/mm3 (0.0-0.8) 04/19/22 23:41 Eos # (Auto) 0.0 K/mm3 (0.0-0.4) 04/19/22 23:41 Baso # (Auto) 0.0 K/mm3 (0.0-0.1) 04/19/22 23:41 Seg Neutrophils % 87.2 % (40.0-70.0) H 04/19/22 23:41 Seg Neutrophils # 14.6 K/mm3 (1.8-7.7) H 04/19/22 23:41 PT 16.4 Sec. (12.2-14.9) H 04/19/22 23:41 INR 1.18 (0.87-1.13) H 04/19/22 23:41 APTT 28.0 Sec. (24.2-36.6) 04/19/22 23:41 Sodium 163 mmol/L (137-145) H* 04/19/22 23:41 Potassium 4.2 mmol/L (3.6-5.0) 04/20/22 09:23 Chloride 128.7 mmol/L (98-107) H 04/20/22 09:23 Carbon Dioxide 22 mmol/L (22-30) 04/20/22 09:23 Anion Gap 17 mmol/L 04/20/22 09:23 BUN 53 mg/dL (7-17) H 04/20/22 09:23 Creatinine 1.1 mg/dL (0.6-1.2) 04/20/22 09:23 Estimated GFR 47 ml/min 04/20/22 09:23 BUN/Creatinine Ratio 48 % 04/20/22 09:23 Glucose 80 mg/dL (65-100) 04/20/22 09:23 Calcium 11.1 mg/dL (8.4-10.2) H 04/20/22 09:23 Total Bilirubin 0.70 mg/dL (0.1-1.2) 04/19/22 23:41 AST 41 units/L (5-40) H 04/19/22 23:41 ALT 20 units/L (7-56) 04/19/22 23:41 Alkaline Phosphatase 124 units/L (35-129) 04/19/22 23:41 Total Creatine Kinase 313 units/L (30-135) H 04/19/22 23:41 CK-MB (CK-2) 2.8 ng/mL (0.0-4.0) 04/19/22 23:41 CK-MB (CK-2) Rel Index 0.8 (0-4) 04/19/22 23:41 Troponin T 0.283 ng/mL (0.00-0.029) H* 04/19/22 23:41 Total Protein 7.5 g/dL (6.3-8.2) 04/19/22 23:41 Albumin 2.4 g/dL (3.9-5) L 04/19/22 23:41 Albumin/Globulin Ratio 0.5 % 04/19/22 23:41 Triglycerides 167 mg/dL (2-149) H 04/19/22 23:41 Cholesterol 152 mg/dL (50-199) 04/19/22 23:41 LDL Cholesterol Direct 75 mg/dL (50-130) 04/19/22 23:41 HDL Cholesterol 36 mg/dL (40-59) L 04/19/22 23:41 Cholesterol/HDL Ratio 4.22 % 04/19/22 23:41 Franco/IV: Voiding Method External Female Catheter Active Medications - Current Medications Current Medications: Generic Name Dose Route Start Last Admin Trade Name Freq PRN Reason Stop Dose Admin Acetaminophen 650 mg 04/20/22 03:22 Acetaminophen 325 Mg Tab PO Q4H PRN Pain MILD(1-3)/Fever >100.5/GILLIAM Sodium Chloride 1,000 mls @ 125 mls/hr 04/20/22 03:30 04/20/22 09:26 Nacl 0.9% 1000 Ml IV 125 mls/hr DIRECT ERICKSON Administration Magnesium Hydroxide 30 ml 04/20/22 03:22 Magnesium Hydroxide (Mom) Oral Liqd Udc PO Q4H PRN Constipation Morphine Sulfate 2 mg 04/20/22 03:22 04/20/22 04:09 Morphine 2 Mg/1 Ml Inj IV 2 mg Q4H PRN Administration Pain, Moderate (4-6) Morphine Sulfate 4 mg 04/20/22 03:22 Morphine 4 Mg/1 Ml Inj IV Q4H PRN Pain , Severe (7-10) Ondansetron HCl 4 mg 04/20/22 03:22 Ondansetron 4 Mg/2 Ml Inj IV Q8H PRN Nausea And Vomiting Sodium Chloride 10 ml 04/20/22 10:00 04/20/22 09:24 Sodium Chloride 0.9% 10 Ml Flush Syringe IV 10 ml BID ERICKSON Administration Sodium Chloride 10 ml 04/20/22 03:22 Sodium Chloride 0.9% 10 Ml Flush Syringe IV PRN PRN LINE FLUSH
[2022-04-20] MEDS: SODIUM CHLORIDE 0.45% 1000 ML 1,000 ML IV SCH (13:05)
--- NOTE | 2022-04-20 16:49 | Consultation ---
History of Present Illness - Reason for Consult Consult date: 04/20/22 acute renal failure, hypernatremia - History of Present Illness Mrs. Steinberg is an 86yo with dementia who presented to the ED decline in mental status and poor po intake. History obtained from patient's son who reports that since discharge from hospital appx 2 weeks ago, patient has been less interactive; she is no longer s peaking. In addition, he reports that patient has stopped eating/drinking. Per records, upon EMS arrival, patient was tachycardic with transient increase in HR to the 200s. In the ED, patient was hypotensive w/ HR 130s. Labs were notable for sodium 165 and SCr mg/dL. Nephrology consultation re quested by the primary team Patient's son reports concern that she has been experiencing left leg pain for 2+ weeks. He states that prior to admission in early March, patient was having falls. He is concerned that patient may have injured her leg during a fall. Past History Past Medical History: atrial fib, arthritis, hyperlipidemia, stroke Past Surgical History: PTCA, Other (Right mastectomy, surgery left breast, pacemaker placement) Social history: no significant social history Family history: no significant family history Medications and Allergies Allergies Allergy/AdvReac Type Severity Reaction Status Date / Time No Known Allergies Allergy Verified 02/01/16 19:17 Home Medications Medication Instructions Recorded Confirmed Last Taken Type ALBUTEROL NEB's [Proventil 0.083% 2.5 mg IH Q4HRT PRN #100 nebu 02/14/19 04/20/22 Unknown Rx NEBS] Amiodarone [Cordarone 200 MG TAB] 200 mg PO DAILY #20 tablet 02/14/19 04/20/22 03/23/22 Rx carvediloL [Coreg] 3.125 mg PO BID #60 tablet 02/14/19 04/20/22 03/23/22 Rx Docusate Sodium [Colace CAP] 100 mg PO BID #60 capsule 03/30/22 04/20/22 Unknown Rx lisinopriL [Zestril TAB] 10 mg PO QDAY #30 tablet 03/30/22 04/20/22 Unknown Rx Active Meds: Active Medications Acetaminophen (Acetaminophen 325 Mg Tab) 650 mg PO Q4H PRN PRN Reason: Pain MILD(1-3)/Fever >100.5/GILLIAM Sodium Chloride (Nacl 0.45% 1000 Ml) 1,000 mls @ 75 mls/hr IV DIRECT [facility] Last Admin: 04/20/22 13:05 Dose: 75 mls/hr Magnesium Hydroxide (Magnesium Hydroxide (Mom) Oral Liqd Udc) 30 ml PO Q4H PRN PRN Reason: Constipation Morphine Sulfate (Morphine 2 Mg/1 Ml Inj) 2 mg IV Q4H PRN PRN Reason: Pain, Moderate (4-6) Last Admin: 04/20/22 04:09 Dose: 2 mg Morphine Sulfate (Morphine 4 Mg/1 Ml Inj) 4 mg IV Q4H PRN PRN Reason: Pain , Severe (7-10) Ondansetron HCl (Ondansetron 4 Mg/2 Ml Inj) 4 mg IV Q8H PRN PRN Reason: Nausea And Vomiting Sodium Chloride (Sodium Chloride 0.9% 10 Ml Flush Syringe) 10 ml IV BID [facility] Last Admin: 04/20/22 09:24 Dose: 10 ml Sodium Chloride (Sodium Chloride 0.9% 10 Ml Flush Syringe) 10 ml IV PRN PRN PRN Reason: LINE FLUSH Review of Systems ROS unobtainable: due to mental status All systems: negative Exam - Vital Signs Vital signs: Vital Signs Temp Pulse Resp BP Pulse Ox 98.4 F 135 H 22 165/110 95 04/19/22 22:22 04/19/22 22:22 04/19/22 22:22 04/19/22 22:22 04/19/22 22:22 - General Appearance General appearance: frail EENT: ATNC Respiratory: Clear to Ascultation Heart: regular, S1S2 Gastrointestinal: Present: normal. Absent: tenderness, distended Integumentary: warm and dry Neurologic: other (somnolent) Musculoskeletal: Present: other (no edema) Results - Lab Results 04/19/22 23:41 04/20/22 09:23 Most recent lab results Calcium 11.1 mg/dL (8.4-10.2) H 04/20/22 09:23 Assessment and Plan Impression: * Acute kidney injury secondary to prerenal azotemia due to dehydration * Hypernatermia secondary to dehydration * Acute encephalopathy * Dementia * LLE pain * Anemia * Hypertension Plan: * Continue IVF for hydration * UA to r/o UTI pending * Obtain left LE plain films per request of patient's son * Hold ACEi * Dose medications for renal function * Avoid potential nephrotoxins
[2022-04-20 17:30] LABS: Bilirubin,Urine NEG (Negative); Blood,Urine SM (Negative); Color,Urine Yellow (Yellow); Mucus,Urine FEW /HPF; Protein,Urine <15 mg/dL mg/dL (Negative); Urobilinogen,Urine < 2.0 mg/dL (<2.0)
--- NOTE | 2022-04-20 18:44 | XRay Report ---
XR femur 2+V LT, XR hip 2-3V LT, XR knee 1-2V LT INDICATION / CLINICAL INFORMATION: left leg pain; hx of fall. COMPARISON: CT from 03/26/2022. FINDINGS: Pelvis/left hip: No acute fracture. No hip dislocation. Mild hip osteoarthritis. Diffuse osteopenia. No focal soft tissue abnormality. Left femur: Diffuse osteopenia. No acute fracture. No focal soft tissue abnormality. Left knee: Moderate-severe tricompartmental osteoarthritis, preferentially involving the lateral knee . There is diffuse osteopenia. No acute fracture or malalignment. Nonspecific moderate knee joint eff usion. IMPRESSION: 1. No acute osseous findings of the left hip, femur, or knee. 2. Degenerative changes, as above. Signer Name: Pepito Hampton MD Signed: 04/20/2022 6:40 PM Workstation Name: [id number]
--- NOTE | 2022-04-20 20:07 | Ultrasound Report ---
. ULTRASOUND RENAL INDICATION / CLINICAL INFORMATION: PREETI. COMPARISON: CT from 03/26/2022 FINDINGS: RIGHT KIDNEY: Size (in cm): 8.2 - Echogenicity: Normal. - Parenchymal Thickness: Parenchymal thinning, measuring 1.1 cm. - Hydronephrosis: None. - Cyst or mass: 1.5 cm cyst at the lower pole. - Stones: None seen. LEFT KIDNEY: Size (in cm): 9 - Echogenicity: Normal. - Parenchymal Thickness: Mild parenchymal thinning, measuring 1.3 cm. - Hydronephrosis: None. - Cyst or mass: No significant abnormality. - Stones: None seen. URINARY BLADDER: Moderate amount of debris layering the bladder. No bladder wall thickening. FREE FLUID: None. ADDITIONAL FINDINGS: 3.1 cm simple appearing cyst in the right adnexa, unchanged from prior CT. IMPRESSION: 1. Mild bilateral renal atrophy. No acute abnormality. No hydronephrosis. 2. Nonspecific moderate debris in the bladder, may reflect proteinaceous or hemorrhagic debris. No si gnificant bladder wall thickening. Recommend correlation for cystitis. 3. Other incidental findings as above. Signer Name: Pepito Hampton MD Signed: 04/20/2022 8:03 PM Workstation Name: [id number]
[2022-04-20] MEDS: cefTRIAXone/NS 1 GM/50 ML 1 GM/50 ML BAG IV SCH (21:22)
[2022-04-21] MEDS: SODIUM CHLORIDE 0.45% 1000 ML 1,000 ML IV SCH (03:04)
[2022-04-21 05:53] LABS: Basophils % (Auto) 0.2 % (0.0-1.8); Eosinophils # (Auto) 0.1 K/mm3 (0.0-0.4); Eosinophils % (Auto) 0.4 % (0.0-4.3); Lymphocytes # (Auto) 1.2 K/mm3 (1.2-5.4); Lymphocytes % (Auto) 7.4 % (13.4-35.0); Mean Corpuscular HGB Conc 30 % (30-34); Mean Corpuscular Volume 97 fl (79-97); Monocytes # (Auto) 0.5 K/mm3 (0.0-0.8); Monocytes % (Auto) 3.2 % (0.0-7.3); Platelet Count 201 K/mm3 (140-440); Red Blood Count 3.39 M/mm3 (3.65-5.03)
[2022-04-21 06:04] LABS: Calcium 10.6 mg/dL (8.4-10.2)
--- NOTE | 2022-04-21 12:18 | Progress Note ---
Assessment and Plan Assessment and plan: Patient is an 86-year-old -[place] female with significant past medical history of coronary artery disease, CVA, hyperlipidemia and dementia brought into the emergency room for evaluation of decreased oral intake. Work-up in the emergency room with significant findings of leukocytosis with WBC 16.7, hyponatremia of 163, BUN of 57 and creatinine of 1.5. Troponin of 0.283. Severe sepsis. Present on admission. Patient meets criteria given the tachycardia, altered mentation and diagnosis of UTI. UTI. Adult failure to thrive Acute kidney injury secondary to vasomotor nephropathy/dehydration Hypernatremia Toxic metabolic encephalopathy Leukocytosis History of vascular dementia History of atrial fibrillation History of CVA Elevated troponin Hyperlipidemia 04/20/2022. We will check a urinalysis to rule out UTI given the leukocytosis. We will also check blood cultures. Per the ER record, the patient's son is considering hospice. We will continue with supportive care with IV fluid hydration and changed to half normal saline and follow-up BMP. Check renal ultrasound. Elevated troponin is likely secondary to acute kidney injury. 04/21/2022. The patient was started on Rocephin for sepsis/UTI. Follow-up blood cultures. Patient still lethargic and confused. Unsure of the patient's baseline mental status. We will continue to treat underlying causes for toxic m etabolic encephalopathy. Hypernatremia is essentially the same. We will change IV fluids to D5W. Nephrology following. Place Dobbhoff tube and began tube feedings. Dietitian consultation if no significant improvement in sodium, we will add free water through the feeding tube. Left leg plain films negative for any acute abnormalities. History Interval history: No new issues since admission Hospitalist Physical - Constitutional Vitals: Temp Pulse Resp BP Pulse Ox 98.4 F 86 18 139/87 97 04/19/22 22:22 04/20/22 20:25 04/20/22 20:25 04/20/22 20:25 04/21/22 12:06 General appearance: Present: no acute distress, well-nourished, other (Very dry oral mucosa) - EENT Eyes: Present: PERRL, EOM intact ENT: hearing intact, clear oral mucosa, dentition normal - Neck Neck: Present: supple, normal ROM - Respiratory Respiratory effort: normal Respiratory: bilateral: CTA - Cardiovascular Rhythm: regular Heart Sounds: Present: S1 & S2. Absent: gallop, rub - Extremities Extremities: no ischemia, No edema, Full ROM - Abdominal General gastrointestinal: soft, non-tender, non-distended, normal bowel sounds - Integumentary Integumentary: Present: clear, warm, dry - Neurologic Neurologic: CNII-XII intact, moves all extremities HEART Score - HEART Score Troponin: Troponin T 0.283 ng/mL (0.00-0.029) H* 04/19/22 23:41 Results - Labs CBC & Chem 7: 04/21/22 05:26 04/21/22 05:26 Labs: Laboratory Last Values WBC 16.9 K/mm3 (4.5-11.0) H 04/21/22 05:26 RBC 3.39 M/mm3 (3.65-5.03) L 04/21/22 05:26 Hgb 10.0 gm/dl (10.1-14.3) L 04/21/22 05:26 Hct 33.0 % (30.3-42.9) 04/21/22 05:26 MCV 97 fl (79-97) 04/21/22 05:26 MCH 29 pg (28-32) 04/21/22 05:26 MCHC 30 % (30-34) 04/21/22 05:26 RDW 15.0 % (13.2-15.2) 04/21/22 05:26 Plt Count 201 K/mm3 (140-440) 04/21/22 05:26 Lymph % (Auto) 7.4 % (13.4-35.0) L 04/21/22 05:26 [place] % (Auto) 3.2 % (0.0-7.3) 04/21/22 05:26 Eos % (Auto) 0.4 % (0.0-4.3) 04/21/22 05:26 Baso % (Auto) 0.2 % (0.0-1.8) 04/21/22 05:26 Lymph # (Auto) 1.2 K/mm3 (1.2-5.4) 04/21/22 05:26 [place] # (Auto) 0.5 K/mm3 (0.0-0.8) 04/21/22 05:26 Eos # (Auto) 0.1 K/mm3 (0.0-0.4) 04/21/22 05:26 Baso # (Auto) 0.0 K/mm3 (0.0-0.1) 04/21/22 05:26 Seg Neutrophils % 88.8 % (40.0-70.0) H 04/21/22 05:26 Seg Neutrophils # 15.0 K/mm3 (1.8-7.7) H 04/21/22 05:26 PT 16.4 Sec. (12.2-14.9) H 04/19/22 23:41 INR 1.18 (0.87-1.13) H 04/19/22 23:41 APTT 28.0 Sec. (24.2-36.6) 04/19/22 23:41 Sodium 162 mmol/L (137-145) H* 04/21/22 05:26 Potassium 3.7 mmol/L (3.6-5.0) 04/21/22 05:26 Chloride 131.0 mmol/L (98-107) H 04/21/22 05:26 Carbon Dioxide 21 mmol/L (22-30) L 04/21/22 05:26 Anion Gap 14 mmol/L 04/21/22 05:26 BUN 48 mg/dL (7-17) H 04/21/22 05:26 Creatinine 1.0 mg/dL (0.6-1.2) 04/21/22 05:26 Estimated GFR 53 ml/min 04/21/22 05:26 BUN/Creatinine Ratio 48 % 04/21/22 05:26 Glucose 79 mg/dL (65-100) 04/21/22 05:26 Calcium 10.6 mg/dL (8.4-10.2) H 04/21/22 05:26 Total Bilirubin 0.70 mg/dL (0.1-1.2) 04/19/22 23:41 AST 41 units/L (5-40) H 04/19/22 23:41 ALT 20 units/L (7-56) 04/19/22 23:41 Alkaline Phosphatase 124 units/L (35-129) 04/19/22 23:41 Total Creatine Kinase 313 units/L (30-135) H 04/19/22 23:41 CK-MB (CK-2) 2.8 ng/mL (0.0-4.0) 04/19/22 23:41 CK-MB (CK-2) Rel Index 0.8 (0-4) 04/19/22 23:41 Troponin T 0.283 ng/mL (0.00-0.029) H* 04/19/22 23:41 Total Protein 7.5 g/dL (6.3-8.2) 04/19/22 23:41 Albumin 2.4 g/dL (3.9-5) L 04/19/22 23:41 Albumin/Globulin Ratio 0.5 % 04/19/22 23:41 Triglycerides 167 mg/dL (2-149) H 04/19/22 23:41 Cholesterol 152 mg/dL (50-199) 04/19/22 23:41 LDL Cholesterol Direct 75 mg/dL (50-130) 04/19/22 23:41 HDL Cholesterol 36 mg/dL (40-59) L 04/19/22 23:41 Cholesterol/HDL Ratio 4.22 % 04/19/22 23:41 Urine Color Yellow (Yellow) 04/20/22 Unknown Urine Turbidity Slightly-cloudy (Clear) 04/20/22 Unknown Urine pH 5.0 (5.0-7.0) 04/20/22 Unknown Ur Specific [place] 1.017 (1.003-1.030) 04/20/22 Unknown Urine Protein <15 mg/dl mg/dL (Negative) 04/20/22 Unknown Urine Glucose (UA) Neg mg/dL (Negative) 04/20/22 Unknown Urine Ketones Neg mg/dL (Negative) 04/20/22 Unknown Urine Blood Sm (Negative) 04/20/22 Unknown Urine Nitrite Neg (Negative) 04/20/22 Unknown Urine Bilirubin Neg (Negative) 04/20/22 Unknown Urine Urobilinogen < 2.0 mg/dL (<2.0) 04/20/22 Unknown Ur Leukocyte Esterase Lg (Negative) 04/20/22 Unknown Urine WBC (Auto) 138.0 /HPF (0.0-6.0) H 04/20/22 Unknown Urine RBC (Auto) 2.0 /HPF (0.0-6.0) 04/20/22 Unknown U Epithel Cells (Auto) 8.0 /HPF (0-13.0) 04/20/22 Unknown Urine Mucus Few /HPF 04/20/22 Unknown Urine Yeast (Budding) 1+ /HPF 04/20/22 Unknown Franco/IV: Voiding Method External Female Catheter Active Medications - Current Medications Current Medications: Generic Name Dose Route Start Last Admin Trade Name Freq PRN Reason Stop Dose Admin Acetaminophen 650 mg 04/20/22 03:22 Acetaminophen 325 Mg Tab PO Q4H PRN Pain MILD(1-3)/Fever >100.5/GILLIAM Sodium Chloride 1,000 mls @ 75 mls/hr 04/20/22 11:00 04/21/22 03:04 Nacl 0.45% 1000 Ml IV 75 mls/hr DIRECT ERICKSON Administration Ceftriaxone Sodium 1 gm in 50 mls @ 100 mls/hr 04/20/22 18:30 04/20/22 21:22 Rocephin/Ns 1 Gm/50 Ml IV 100 mls/hr Q24H ERICKSON Administration Protocol Magnesium Hydroxide 30 ml 04/20/22 03:22 Magnesium Hydroxide (Mom) Oral Liqd Udc PO Q4H PRN Constipation Morphine Sulfate 2 mg 04/20/22 03:22 04/20/22 04:09 Morphine 2 Mg/1 Ml Inj IV 2 mg Q4H PRN Administration Pain, Moderate (4-6) Morphine Sulfate 4 mg 04/20/22 03:22 Morphine 4 Mg/1 Ml Inj IV Q4H PRN Pain , Severe (7-10) Ondansetron HCl 4 mg 04/20/22 03:22 Ondansetron 4 Mg/2 Ml Inj IV Q8H PRN Nausea And Vomiting Sodium Chloride 10 ml 04/20/22 10:00 04/21/22 09:00 Sodium Chloride 0.9% 10 Ml Flush Syringe IV Not Given BID ERICKSON Sodium Chloride 10 ml 04/20/22 03:22 Sodium Chloride 0.9% 10 Ml Flush Syringe IV PRN PRN LINE FLUSH
[2022-04-21] MEDS ORDERED: LIPASE 10,500/PROTEASE 25,000/AMYLASE 43,750 (UNITS) DR CAP FEEDTUBE PRN (13:00)
[2022-04-21] MEDS ORDERED: SIMPLE SYRUP 15 ML FEEDTUBE PRN ×2 (13:00)
[2022-04-21] MEDS ORDERED: SODIUM BICARBONATE 325 MG TAB FEEDTUBE PRN (13:00)
[2022-04-21] MEDS: DEXTROSE 5% IN WATER 1,000 ML IV SCH (13:27)
--- NOTE | 2022-04-21 14:40 | XRay Report ---
ABDOMEN 1 VIEW INDICATION / CLINICAL INFORMATION: Dobhoff insertion. COMPARISON: None available. FINDINGS: Enteric catheter is coiled within the midesophagus, terminating at the superior [id number]. Recomm end repositioning and reimaging prior to use. Findings were discussed with patient's nurse by phone on 04/21/2022 at 1:36 PM Signer Name: Pepito Hampton MD Signed: 04/21/2022 2:36 PM Workstation Name: [id number]
[2022-04-21] MEDS: cefTRIAXone/NS 1 GM/50 ML 1 GM/50 ML BAG IV SCH (17:42)
[2022-04-22] MEDS: DEXTROSE 5% IN WATER 1,000 ML IV SCH ×2 (01:53→14:45)
[2022-04-22 06:59] LABS: Basophils % (Auto) 0.2 % (0.0-1.8); Eosinophils # (Auto) 0.1 K/mm3 (0.0-0.4); Hematocrit 28.4 % (30.3-42.9); Hemoglobin 8.8 gm/dl (10.1-14.3); Lymphocytes % (Auto) 6.6 % (13.4-35.0); Mean Corpuscular HGB Conc 31 % (30-34); Mean Corpuscular Volume 97 fl (79-97); Monocytes # (Auto) 0.4 K/mm3 (0.0-0.8); Monocytes % (Auto) 2.8 % (0.0-7.3); Platelet Count 190 K/mm3 (140-440); Red Blood Count 2.92 M/mm3 (3.65-5.03); Red Cell Distribution Width 15.1 % (13.2-15.2)
--- NOTE | 2022-04-22 07:46 | Progress Note ---
Assessment and Plan Assessment and plan: Patient is an 86-year-old -Iraqi female with significant past medical history of coronary artery disease, CVA, hyperlipidemia and dementia brought into the emergency room for evaluation of decreased oral intake. Work-up in the emergency room with significant findings of leukocytosis with WBC 16.7, hyponatremia of 163, BUN of 57 and creatinine of 1.5. Troponin of 0.283. Severe sepsis. Present on admission. Patient meets criteria given the tachycardia, altered mentation and diagnosis of UTI. UTI[urinary tract infection] Continue empiric antibiotic Rocephin Follow cultures Adult failure to thrive; Multifactorial, nutrition supplements and tube feeding Acute kidney injury; secondary to vasomotor nephropathy/dehydration Severe hypernatremia; sodium levels trending down Continue free water flushes Toxic metabolic encephalopathy; Multifactorial, failure to thrive, underlying sepsis Advanced age, treat the underlying cause Supportive care Leukocytosis; Due to severe sepsis, trending down History of vascular dementia; Supportive care History of atrial fibrillation; Rate controlled, hold beta-blockers due to intermittent bradycardia chronic anticoagulation with Eliquis was held due to recent GI bleeding History of CVA; Supportive care Elevated troponin; Closely monitor Hyperlipidemia; Continue statin 04/20/2022. We will check a urinalysis to rule out UTI given the leukocytosis. We will also check blood cultures. Per the ER record, the patient's son is considering hospice. We will continue with supportive care with IV fluid hydrat ion and changed to half normal saline and follow-up BMP. Check renal ultrasound. Elevated troponin is likely secondary to acute kidney injury. 04/21/2022. The patient was started on Rocephin for sepsis/UTI. Follow-up blood cultures. Patient still lethargic and confused. Unsure of the patient's baseline mental status. We will continue to treat underlying causes for toxic metabolic encephalopathy. Hypernatremia is essentially the same. We will change IV fluids to D5W. Nephrology following. Place Dobbhoff tube and began tube feedings. Dietitian consultation if no significant improvement in sodium, we will add free water through the feeding tube. Left leg plain films negative for any acute abnormalities. 04/22/22; follow cultures, continue empiric antibiotics and supportive care Hospitalist Physical - Constitutional Vitals: Temp Pulse Resp BP Pulse Ox 98.2 F 41 L 22 116/91 67 L 04/22/22 04:53 05/30/22 23:26 04/22/22 04:53 04/22/22 04:53 04/21/22 23:26 General appearance: Present: no acute distress, well-nourished, other (Very dry oral mucosa) HEART Score - HEART Score Troponin: Troponin T 0.283 ng/mL (0.00-0.029) H* 04/19/22 23:41 Results - Labs CBC & Chem 7: 04/22/22 05:54 04/22/22 05:54 Labs: Laboratory Last Values WBC 14.9 K/mm3 (4.5-11.0) H 04/22/22 05:54 RBC 2.92 M/mm3 (3.65-5.03) L 04/22/22 05:54 Hgb 8.8 gm/dl (10.1-14.3) L 04/22/22 05:54 Hct 28.4 % (30.3-42.9) L 04/22/22 05:54 MCV 97 fl (79-97) 04/22/22 05:54 MCH 30 pg (28-32) 04/22/22 05:54 MCHC 31 % (30-34) 04/22/22 05:54 RDW 15.1 % (13.2-15.2) 04/22/22 05:54 Plt Count 190 K/mm3 (140-440) 04/22/22 05:54 Lymph % (Auto) 6.6 % (13.4-35.0) L 04/22/22 05:54 [place] % (Auto) 2.8 % (0.0-7.3) 04/22/22 05:54 Eos % (Auto) 1.0 % (0.0-4.3) 04/22/22 05:54 Baso % (Auto) 0.2 % (0.0-1.8) 04/22/22 05:54 Lymph # (Auto) 1.0 K/mm3 (1.2-5.4) L 04/22/22 05:54 [place] # (Auto) 0.4 K/mm3 (0.0-0.8) 04/22/22 05:54 Eos # (Auto) 0.1 K/mm3 (0.0-0.4) 04/22/22 05:54 Baso # (Auto) 0.0 K/mm3 (0.0-0.1) 04/22/22 05:54 Seg Neutrophils % 89.4 % (40.0-70.0) H 04/22/22 05:54 Seg Neutrophils # 13.4 K/mm3 (1.8-7.7) H 04/22/22 05:54 PT 16.4 Sec. (12.2-14.9) H 04/19/22 23:41 INR 1.18 (0.87-1.13) H 04/19/22 23:41 APTT 28.0 Sec. (24.2-36.6) 04/19/22 23:41 Sodium 158 mmol/L (137-145) H 04/22/22 05:54 Potassium 3.4 mmol/L (3.6-5.0) L 04/22/22 05:54 Chloride 127.8 mmol/L (98-107) H 04/22/22 05:54 Carbon Dioxide 24 mmol/L (22-30) 04/22/22 05:54 Anion Gap 10 mmol/L 04/22/22 05:54 BUN 40 mg/dL (7-17) H 04/22/22 05:54 Creatinine 1.0 mg/dL (0.6-1.2) 04/22/22 05:54 Estimated GFR 53 ml/min 04/22/22 05:54 BUN/Creatinine Ratio 40 % 04/22/22 05:54 Glucose 128 mg/dL (65-100) H 04/22/22 05:54 Calcium 10.0 mg/dL (8.4-10.2) 04/22/22 05:54 Total Bilirubin 0.70 mg/dL (0.1-1.2) 04/19/22 23:41 AST 41 units/L (5-40) H 04/19/22 23:41 ALT 20 units/L (7-56) 04/19/22 23:41 Alkaline Phosphatase 124 units/L (35-129) 04/19/22 23:41 Total Creatine Kinase 313 units/L (30-135) H 04/19/22 23:41 CK-MB (CK-2) 2.8 ng/mL (0.0-4.0) 04/19/22 23:41 CK-MB (CK-2) Rel Index 0.8 (0-4) 04/19/22 23:41 Troponin T 0.283 ng/mL (0.00-0.029) H* 04/19/22 23:41 Total Protein 7.5 g/dL (6.3-8.2) 04/19/22 23:41 Albumin 2.4 g/dL (3.9-5) L 04/19/22 23:41 Albumin/Globulin Ratio 0.5 % 04/19/22 23:41 Triglycerides 167 mg/dL (2-149) H 04/19/22 23:41 Cholesterol 152 mg/dL (50-199) 04/19/22 23:41 LDL Cholesterol Direct 75 mg/dL (50-130) 04/19/22 23:41 HDL Cholesterol 36 mg/dL (40-59) L 04/19/22 23:41 Cholesterol/HDL Ratio 4.22 % 04/19/22 23:41 Urine Color Yellow (Yellow) 04/20/22 Unknown Urine Turbidity Slightly-cloudy (Clear) 04/20/22 Unknown Urine pH 5.0 (5.0-7.0) 04/20/22 Unknown Ur Specific [place] 1.017 (1.003-1.030) 04/20/22 Unknown Urine Protein <15 mg/dl mg/dL (Negative) 04/20/22 Unknown Urine Glucose (UA) Neg mg/dL (Negative) 04/20/22 Unknown Urine Ketones Neg mg/dL (Negative) 04/20/22 Unknown Urine Blood Sm (Negative) 04/20/22 Unknown Urine Nitrite Neg (Negative) 04/20/22 Unknown Urine Bilirubin Neg (Negative) 04/20/22 Unknown Urine Urobilinogen < 2.0 mg/dL (<2.0) 04/20/22 Unknown Ur Leukocyte Esterase Lg (Negative) 04/20/22 Unknown Urine WBC (Auto) 138.0 /HPF (0.0-6.0) H 04/20/22 Unknown Urine RBC (Auto) 2.0 /HPF (0.0-6.0) 04/20/22 Unknown U Epithel Cells (Auto) 8.0 /HPF (0-13.0) 04/20/22 Unknown Urine Mucus Few /HPF 04/20/22 Unknown Urine Yeast (Budding) 1+ /HPF 04/20/22 Unknown Microbiology: Microbiology 04/21/22 22:29 Peripheral/Venous Blood Culture - Preliminary Culture in Progress 04/21/22 22:29 Peripheral/Venous Blood Culture - Preliminary Culture in Progress Franco/IV: Voiding Method External Female Catheter Active Medications - Current Medications Current Medications: Generic Name Dose Route Start Last Admin Trade Name Freq PRN Reason Stop Dose Admin Acetaminophen 650 mg 04/20/22 03:22 Acetaminophen 325 Mg Tab PO Q4H PRN Pain MILD(1-3)/Fever >100.5/GILLIAM Lipase/Protease/Amylase 1 each 04/21/22 13:00 Lipase 10,500/Protease 25,000/Amylase 43,750 (Units) Dr Tadeo FEEDTUBE PRN PRN For Clogged Feeding Tube Ceftriaxone Sodium 1 gm in 50 mls @ 100 mls/hr 04/20/22 18:30 04/21/22 17:42 Rocephin/Ns 1 Gm/50 Ml IV 100 mls/hr Q24H ERICKSON Administration Protocol Dextrose 1,000 mls @ 75 mls/hr 04/21/22 13:00 04/22/22 01:53 D5w IV 75 mls/hr DIRECT ERICKSON Administration Magnesium Hydroxide 30 ml 04/20/22 03:22 Magnesium Hydroxide (Mom) Oral Liqd Udc PO Q4H PRN Constipation Morphine Sulfate 2 mg 04/20/22 03:22 04/20/22 04:09 Morphine 2 Mg/1 Ml Inj IV 2 mg Q4H PRN Administration Pain, Moderate (4-6) Morphine Sulfate 4 mg 04/20/22 03:22 Morphine 4 Mg/1 Ml Inj IV Q4H PRN Pain , Severe (7-10) Ondansetron HCl 4 mg 04/20/22 03:22 Ondansetron 4 Mg/2 Ml Inj IV Q8H PRN Nausea And Vomiting Simple Syrup 15 ml 04/21/22 13:00 Simple Syrup 15 Ml FEEDTUBE PRN PRN Hypoglycemia Simple Syrup 30 ml 04/21/22 13:00 Simple Syrup 15 Ml FEEDTUBE PRN PRN Hypoglycemia Sodium Bicarbonate 325 mg 04/21/22 13:00 Sodium Bicarbonate 325 Mg Tab FEEDTUBE PRN PRN For Clogged Feeding Tube Sodium Chloride 10 ml 04/20/22 10:00 04/21/22 21:34 Sodium Chloride 0.9% 10 Ml Flush Syringe IV 10 ml BID ERICKSON Administration Sodium Chloride 10 ml 04/20/22 03:22 Sodium Chloride 0.9% 10 Ml Flush Syringe IV PRN PRN LINE FLUSH Nutrition/Malnutrition Assess - Dietary Evaluation Nutrition/Malnutrition Findings: Nutrition Notes Start: 04/21/22 14:33 Freq: Status: Active Protocol: Document 04/21/22 14:33 BRIANNE (Rec: 04/21/22 15:15 BRIANNE [id number]) Nutrition Notes Need for Assessment generated from: MD Order Initial or Follow up Assessment Current Diagnosis Acute Kidney Injury,Coronary Artery Disease,Decubitus( Pressure Ulcer),Hypertension, Stroke,Hyperlipidemia Other Pertinent Diagnosis Metabolic Encephalopathy, Failure to Trive, UTI, Leukacytosis, Hypernatremi Current Diet TF-Nepro w/CARBSTEADY @ 25 ml/ hr (since D 04/21). Labs/Tests 04/21: Na 162, Cl 131.0, CO2 21, BUN 48, Ca 10.6. Pertinent Medications 04/21: D5w 1000 ml @ 75 ml/hr, others nutritionally unremarkable. 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 There are reasons to believe Pt's body weight of 95 Kg in chart is incorrect, Pt is diagnosed with Failute to Thive, and admission pictures show that Pt is not Morbidly Obese; unable to contact RN over the phone at the time. Subjective/Other Information RD consult for write/manage TF . Pt is currently on NPO. 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 Pt is on a Non-rebreather, O2 saturation @ 94%, acording to Physical Assessment Histroy notes. Pt presents Sacral decubitus ulcer, and bilateal Feet Dermatitis, acording to Physical Assessment Histroy notes and Admission Documents. Pt has DNR disposition, according to Progress notes. Percent of energy/protein needs met: Prescribed TF-Nepro w/ CARBSTEADY @ 25 ml/hr provides for energy/protein needs (1, 059 Kcal/48 g) during LOS, 101 % Kcal; 88% AA. Burn Absent Trauma Absent GI Symptoms None Food Allergy No Skin Integrity/Comment Sacral decubitus ulcer & abdias. Feet Current % PO Other Minimum of two criteria No Energy Intake (non-severe) <75% Estimated Energy Requirement >7 days Fluid Accumulation N/A Reduced Kiln Charger Strength N/A (non-severe) Protein-Calorie Malnutrition N\A #1 Nutrition Diagnosis Inadequate oral intake Etiology Uncertain. As Evidenced by Signs and Symptoms Pt currently on NPO. Is patient on ventilator? No Is Patient Ambulatory and/or Out of Bed No REE-([place]-confined to bed) 1567.776 Kcal/Kg value to use for calculation 11 Approximate Energy Requirements Using 1045 kcal/Kg Calculation Used for Recommendations Kcal/kg Additional Notes Protein: 0.8-1.2 g/Kg AcjBW; 54-82 g/day. Fluids: 1 ml/Kcal, or as per MD. Nutrition Intervention Nutrition Support: Start TF-Nepro w/CARBSTEADY @ 25 ml/hr. Flush: 100 ml water Q 4 hr, or as per MD. Kcal 1,059 Protein (gm) 48 Carbohydrates (gm) 95 Fat (gm) 56 Fluid (mL) 428 Fiber (gm) 7 % RDI: 101% Kcal; 88% AA. Goal #1 Provide at least 75% of energy /protein needs through Enteral Feeding during LOS. Goal #2 Maintain body weight within +/ -3% of admission body weight during LOS. Follow-Up By: 04/23/22 Additional Comments Start monitoring TF tolerance and BM.
[2022-04-22] MEDS ORDERED: POTASSIUM CHLORIDE ER 10 MEQ TAB PO ONE (08:00)
[2022-04-22] MEDS ORDERED: POTASSIUM CHLORIDE 20 MEQ PACKET FEEDTUBE NR (08:30)
--- NOTE | 2022-04-22 09:21 | Progress Note ---
Assessment and Plan Impression: * Acute kidney injury secondary to prerenal azotemia due to dehydration * Hypernatermia secondary to dehydration * Acute encephalopathy * Dementia * LLE pain * Anemia * Hypertension * Pyuria Plan: * Hypernatremia is improving. Continue hypotonic IV fluid * IV antibiotic as per primary team * Continue to hold ACEi * Her urine shows evidence of urinary tract infection. No significant protein or blood * Renal ultrasound shows mildly atrophic kidneys, no hydronephrosis * Dose medications for renal function * Avoid potential nephrotoxins Subjective Date of service: 04/22/22 Interval history: Patient is comfortable. Not answering any questions. IV fluid D5W infusing. Currently with oxygen supplementation via nasal cannula at 4 L/min. Objective - Vital Signs Vital signs: Vital Signs - 12hr 04/21/22 04/21/22 04/22/22 22:00 23:26 04:53 Temperature 98.2 F 98.2 F Pulse Rate 41 L Respiratory 18 22 Rate Respiratory 17 Rate [ Generalized] Blood Pressure 141/58 116/91 O2 Sat by Pulse 67 L Oximetry 04/22/22 08:43 Temperature Pulse Rate Respiratory Rate Respiratory Rate [ Generalized] Blood Pressure O2 Sat by Pulse 96 Oximetry - General Appearance General appearance: chronically ill, frail, other ( female) EENT: PERRL, mucous membranes dry, other (Tongue is also dry) Neck: no JVD, no thyromegaly Respiratory: Present: Clear to Ascultation Cardiology: regular, normal heart rate Gastrointestinal: normal, normoactive bowel sounds Integumentary: other (No edema) - Lab 04/22/22 05:54 04/22/22 05:54 Most recent lab results Calcium 10.0 mg/dL (8.4-10.2) 04/22/22 05:54 Medications & Allergies - Medications Allergies/Adverse Reactions: Allergies No Known Allergies Allergy (Verified 02/01/16 19:17) Home Medications: Home Medications Medication Instructions Recorded Confirmed Last Taken Type ALBUTEROL NEB's [Proventil 0.083% 2.5 mg IH Q4HRT PRN #100 nebu 02/14/19 04/20/22 Unknown Rx NEBS] Amiodarone [Cordarone 200 MG TAB] 200 mg PO DAILY #20 tablet 02/14/19 04/20/22 03/23/22 Rx carvediloL [Coreg] 3.125 mg PO BID #60 tablet 02/14/19 04/20/22 03/23/22 Rx Docusate Sodium [Colace CAP] 100 mg PO BID #60 capsule 03/30/22 04/20/22 Unknown Rx lisinopriL [Zestril TAB] 10 mg PO QDAY #30 tablet 03/30/22 04/20/22 Unknown Rx Active Medications: Generic Name Dose Route Start Last Admin Trade Name Freq PRN Reason Stop Dose Admin Acetaminophen 650 mg 04/20/22 03:22 Acetaminophen 325 Mg Tab PO Q4H PRN Pain MILD(1-3)/Fever >100.5/GILLIAM Lipase/Protease/Amylase 1 each 04/21/22 13:00 Lipase 10,500/Protease 25,000/Amylase 43,750 (Units) Dr Tadeo FEEDTUBE PRN PRN For Clogged Feeding Tube Ceftriaxone Sodium 1 gm in 50 mls @ 100 mls/hr 04/20/22 18:30 04/21/22 17:42 Rocephin/Ns 1 Gm/50 Ml IV 04/26/22 18:29 100 mls/hr Q24H ERICKSON Administration Protocol Dextrose 1,000 mls @ 75 mls/hr 04/21/22 13:00 04/22/22 01:53 D5w IV 75 mls/hr DIRECT ERICKSON Administration Magnesium Hydroxide 30 ml 04/20/22 03:22 Magnesium Hydroxide (Mom) Oral Liqd Udc PO Q4H PRN Constipation Morphine Sulfate 2 mg 04/20/22 03:22 04/20/22 04:09 Morphine 2 Mg/1 Ml Inj IV 2 mg Q4H PRN Administration Pain, Moderate (4-6) Morphine Sulfate 4 mg 04/20/22 03:22 Morphine 4 Mg/1 Ml Inj IV Q4H PRN Pain , Severe (7-10) Ondansetron HCl 4 mg 04/20/22 03:22 Ondansetron 4 Mg/2 Ml Inj IV Q8H PRN Nausea And Vomiting Potassium Chloride 30 meq 04/22/22 08:30 Potassium Chloride 20 Meq Packet FEEDTUBE 04/22/22 12:30 ONCE@0830 NR Simple Syrup 15 ml 04/21/22 13:00 Simple Syrup 15 Ml FEEDTUBE PRN PRN Hypoglycemia Simple Syrup 30 ml 04/21/22 13:00 Simple Syrup 15 Ml FEEDTUBE PRN PRN Hypoglycemia Sodium Bicarbonate 325 mg 04/21/22 13:00 Sodium Bicarbonate 325 Mg Tab FEEDTUBE PRN PRN For Clogged Feeding Tube Sodium Chloride 10 ml 04/20/22 10:00 04/21/22 21:34 Sodium Chloride 0.9% 10 Ml Flush Syringe IV 10 ml BID ERICKSON Administration Sodium Chloride 10 ml 04/20/22 03:22 Sodium Chloride 0.9% 10 Ml Flush Syringe IV PRN PRN LINE FLUSH
--- NOTE | 2022-04-22 13:32 | Discharge Summary ---
Providers - Providers Date of Admission: 04/20/22 03:22 Date of discharge: 04/22/22 Attending physician: VANITA HOLLOWAY 04/20/22 07:41 Consult to Physician [CONS] Routine Comment: Consulting Provider: MIKE GARCIA Physician Instructions: Reason For Exam: PREETI Consult to Wound/ET Nurse [CONS] Routine Reason For Exam: wound eval 04/21/22 12:12 Consult to Dietitian/Nutrition [CONS] Routine Physician Instructions: Reason For Exam: Reason for Consult: Write/Manage Tube Feeding Consult to Dietitian/Nutrition [CONS] Routine Physician Instructions: Assess nutrtn needs, initiate, modify, manage TF Reason For Exam: Reason for Consult: Write/Manage Tube Feeding Reason for Consult: Write/Manage Tube Feeding 04/22/22 10:51 Speech Therapy Evaluation and Treat [CONS] Routine Reason For Exam: evaluate swallow Primary care physician: TTAYANA BA Hospitalization Reason for admission: Decreased oral intake/sepsis Condition: Serious Pertinent studies: Chest x-ray Renal ultrasound X-ray femur X-ray hip X-ray knee Abdominal x-ray Hospital course: Patient is an 86-year-old -[place] female with significant past medical history of coronary artery disease, CVA, hyperlipidemia and dementia brought into the emergency room for evaluation of decreased oral intake. Work-up in the emergency room with significant findings of leukocytosis with WBC 16.7, hyponatremia of 163, BUN of 57 and creatinine of 1.5. Troponin of 0.283. Severe sepsis. Present on admission. Patient meets criteria given the tachycardia, altered mentation and diagnosis of UTI. UTI[urinary tract infection] Continue empiric antibiotic Rocephin Follow cultures Adult failure to thrive; Multifactorial, nutrition supplements and tube feeding Acute kidney injury; secondary to vasomotor nephropathy/dehydration Severe hypernatremia; sodium levels trending down Continue free water flushes Toxic metabolic encephalopathy; Multifactorial, failure to thrive, underlying sepsis Advanced age, treat the underlying cause Supportive care Leukocytosis; Due to severe sepsis, trending down History of vascular dementia; Supportive care History of atrial fibrillation; Rate controlled, hold beta-blockers due to intermittent bradycardia chronic anticoagulation with Eliquis was held due to recent GI bleeding History of CVA; Supportive care Elevated troponin; Closely monitor Morbid obesity ; BMI 42.3 hyperlipidemia; Continue statin 04/20/2022. We will check a urinalysis to rule out UTI given the leukocytosis. We will also check blood cultures. Per the ER record, the patient's son is considering hospice. We will continue with supportive care with IV fluid hydration and changed to half normal saline and follow-up BMP. Check renal ultrasound. Elevated troponin is likely secondary to acute kidney injury. 04/21/2022. The patient was started on Rocephin for sepsis/UTI. Follow-up blood cultures. Patient still lethargic and confused. Unsure of the patient's baseline mental status. We will continue to treat underlying causes for toxic metabolic encephalopathy. Hypernatremia is essentially the same. We will change IV fluids to D5W. Nephrology following. Place Dobbhoff tube and began tube feedings. Dietitian consultation if no significant improvement in sodium, we will add free water through the feeding tube. Left leg plain films negative for any acute abnormalities. 04/22/22; follow cultures, continue empiric antibiotics and supportive care / Disposition: 50 HOSPICE/HOME Final Discharge Diagnosis (Prints w/discharge instructions): Severe sepsis secondary to UTI. Urinary tract infection. Toxic metabolic encephalopathy. Adult failure to thrive. Acute kidney injury vasomotor nephropathy. Leukocytosis. History of vascular dementia. History of atrial fibrillation. History of CVA. Elevated troponins. Dyslipidemia. Morbid obesity BMI 48.3. Hospice Time spent for discharge: 35 min Core Measure Documentation - Palliative Care Palliative Care/ Comfort Measures: Hospice Care - Core Measures Any of the following diagnoses?: none Exam - Constitutional Vitals: Temp Pulse Resp BP Pulse Ox 97.8 F 61 18 153/72 90 04/22/22 11:23 04/22/22 11:23 04/22/22 11:23 04/22/22 11:23 04/22/22 11:23 General appearance: Present: no acute distress, well-nourished, obese (Morbidly obese) - EENT Eyes: Present: PERRL, EOM intact - Neck Neck: Present: supple, normal ROM - Respiratory Respiratory effort: normal Respiratory: bilateral: diminished, negative: rales, rhonchi, wheezing - Cardiovascular Rhythm: regular Heart Sounds: Present: S1 & S2 - Extremities Extremities: no ischemia, No edema - Abdominal General gastrointestinal: Present: soft, non-tender, non-distended, normal bowel sounds - Integumentary Integumentary: Present: clear, warm - Musculoskeletal Musculoskeletal: strength equal bilaterally - Psychiatric Psychiatric: appropriate mood/affect, cooperative - Neurologic Neurologic: moves all extremities Plan Activity: advance as tolerated, fall precautions Diet: other (puree diet) Additional Instructions: Fall precautions. Aspiration precautions. Rest of the management per medical services coordinator. Patient is being discharged home with home hospice Follow up with: TATYANA BA MD [Primary Care Provider] - 7 Days
[2022-04-22] MEDS: MORPHINE 2 MG/1 ML INJ IV PRN (14:45)
[2022-04-22] MEDS ORDERED: LIP THERAPY VASELINE TP PRN (15:00)
[2022-04-22 16:29] VITALS: BP 161/83
== END 2022-04-22 18:36 | disposition hospice, home (50) | DRG 871 ==
LOC: ED 22:19 → 3A 04-20 03:22
PROVIDERS: ADMIT Internal Medicine Geriatric Medicine; ATTEND Internal Medicine
DX: A41.9 Sepsis, unspecified organism (principal); N17.0 Acute kidney failure with tubular necrosis; G92.8 Other toxic encephalopathy; E87.0 Hyperosmolality and hypernatremia; N39.0 Urinary tract infection, site not specified; E87.1 Hypo-osmolality and hyponatremia; Z68.41 Body mass index [BMI] 40.0-44.9, adult; M19.90 Unspecified osteoarthritis, unspecified site; I25.10 Atherosclerotic heart disease of native coronary artery without angina pectoris; E78.5 Hyperlipidemia, unspecified; D64.9 Anemia, unspecified; E66.01 Morbid (severe) obesity due to excess calories; I10 Essential (primary) hypertension; R65.20 Severe sepsis without septic shock; F03.90 Unspecified dementia, unspecified severity, without behavioral disturbance, psychotic disturbance, mood disturbance, and anxiety; I48.91 Unspecified atrial fibrillation; E86.0 Dehydration; E78.00 Pure hypercholesterolemia, unspecified; Z79.899 Other long term (current) drug therapy; Z79.01 Long term (current) use of anticoagulants; Z95.0 Presence of cardiac pacemaker; Z90.11 Acquired absence of right breast and nipple; Z86.73 Personal history of transient ischemic attack (TIA), and cerebral infarction without residual deficits
CPT/HCPCS: 36415; 71045; 74018; 76770; 80048; 80053; 80061; 81001; 82550; 82553; 84484; 85025; 85610; 85730; 87040; 93005; 94760; G0378; J3490; J0696; J2270; J7030; J7070